=== PATIENT | female | born 1950 | race Caucasian/White ===

== ENCOUNTER → 2017-01-09 | Outpatient (CLI) | payer MEDICARE, MEDICAID ==
[~2017-01-09] MED LIST: ACET325T51 PO; ALBU18HF2 ORAL INH; AMLO10TA2 PO; ASPI81TA2 PO; ATEN50TA PO; GUAI-782 PO; IPRA12.9 INH; LEVO100T12 PO; LISI1TAB9 PO; LORA1TAB3 PO; POTA-81 PO
== END ==
LOC: IMA 15:11
PROVIDERS: ATTEND Registered Nurse
DX: R92.8 Other abnormal and inconclusive findings on diagnostic imaging of breast (principal)

== ENCOUNTER 2017-01-27 06:03 | Day surgery (SDC) | payer MEDICARE, MEDICAID ==
--- NOTE | 2017-01-03 09:46 | NUR ---
NN PT REPORTS THAT SHE STILL ISN'T FEELING WELL FROM HER RECENT BRONCHITIS AND WISHES TO RESCHEDULE PROCEDURE FOR A LATER DAY. PT. TRANSFERRED TO DR. CHIN OFFICE.
[~2017-01-27] VITALS: Ht 167.6 cm; Wt 106.5 kg
[~2017-01-27 06:03] MED LIST changes: +DIPH25CA84 PO; +LORA10TA62 PO; +PRAV40TA3 PO
[2017-01-27 06:07] VITALS: Ht 167.6 cm; Wt 106.5 kg
--- OUTSIDE RECORDS SUMMARY | 2017-01-27 06:07 | XMS REPORT | Continuity of Care Document ---
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 Role Phone RICKI BRUNSON DO Primary Care Physician [phone] Insurance Providers Payer Name Policy Number Subscriber Name Relationship s Medicare [id number] Georgina Galloway Self / Same As Patient [facility] [id number] Georgina Galloway 01 Self / Same As Patient Problems Medical Problems Problem Onset Date Status Acute pharyngitis Unknown Active Acute sinusitis Unknown Active Opiate withdrawal Unknown Active Hypokalemia Unknown Active Adhesive capsulitis of left shoulder Unknown Active Medications Medication Dose Route Sig Days/Qty Instructions Order Date Discontinued Date Status Aspirin 81 Mg OR DAILY 07/28/08 Active Lisinopril & Hydrochlorothiazi 1 Tab PO 11/28/13 Active Pravastatin Sod 40 Mg PO 11/28/13 Active Amlodipine Besylate 10 Mg PO DAILY 01/22/14 Active Potassium Chloride Microencaps (K-Dur) 20 Meq PO DAILY 01/22/14 Active Albuterol 1 Ea INH NEEDED 01/22/14 Active Lorazepam 0.5 Mg PO TWICE A DAY PRN P 01/22/14 Active Levothyroxine Sodium 100 Mcg PO DAILY 04/09/14 Active Sertraline Hcl 50 Mg PO DAILY 04/09/14 Active Loratadine 10 Mg PO DAILY 04/09/14 Active Atenolol 50 Mg PO DAILY For Hypertension 04/09/14 Active Acetaminophen/Hydrocodone Bitart 1 Tab PO Q 4 TO 6 HRS PRN for pain 02/1608/02/14 Discontinued Social History Social History Problem Response Recorded Date/Time Hx Alcohol Use No 08/17/2014 3:55pm Smoking Status Former smoker 08/17/2014 3:55pm Query Response Start Date Stop Date Smoking Status Former smoker Hospital Discharge Instructions No hospital discharge instructions. Plan of Care Prescriptions See Medications Section Functional Status No functional status results. Allergies, Adverse Reactions, Alerts Allergen Type Severity Reaction Status Last Updated Beta Lactamase Inhibitor Allergy Unknown Active 01/22/14 Sulfa Allergy Unknown Active 01/22/14 Immunizations No immunization records. Vital Signs Acute Vital Signs Vital Response Date/Time Blood Pressure 122/80 mm Hg Blood Pressure Mean 94 mm Hg Temperature (Fahrenheit) 98.7 degrees F (96.0 - 99.9) Temperature (Calculated Celsius) 37.09810 degrees C Temperature (Calculated Celsius) 36.78300 degrees C (36.4 - 37.5) Temperature (Fahrenheit) 98.0 degrees F (96.0 - 99.9) Temperature Source Oral Pulse Pulse Rate (adult) 61 bpm (60 - 100) Pulse Rate: ED 86 bpm Respiratory Rate 16 breaths per minute (10 - 20) Respiratory Rate 20 bpm (10 - 20) Height (Feet) 5 ft Height (Inches) 6.5 in. Weight (Pounds) 230.2 lbs Height 5 ft 6.5 in Weight 230 lb Body Mass Index 36.6 kg/m^2 Ambulatory Vital Signs Vital Response Date/Time Height 5 ft 6.540 in 08/02/2014 10:03am Weight 229 lbs 08/02/2014 10:03am Temperature 97.5 degrees F 08/02/2014 10:03am Blood Pressure 132/74 mm Hg 08/02/2014 10:03am Pulse Rate 51 bpm 08/02/2014 10:03am Body Surface Area 2.25 m2 08/02/2014 10:03am Body Mass Index 36.4 kg/m2 08/02/2014 10:03am Results Test Source Date Result Interp. Ref. Range Comments Alanine Aminotransferase (ALT/SGPT) April 09, 2014 8:40pm 24 U/L N 5-40 Albumin April 09, 2014 8:40pm 4.1 gm/dL N 3.2-5.0 Albumin/Globulin Ratio April 09, 2014 8:40pm 1.6 N 1.4-2.4 Alkaline Phosphatase April 09, 2014 8:40pm 79 U/L N 35-125 Anion Gap April 09, 2014 8:40pm 12.9 N 6-13 Aspartate Amino Transf (AST/SGOT) April 09, 2014 8:40pm 23 U/L N 5-40 BUN/Creatinine Ratio April 09, 2014 8:40pm 26.3 Basophils # (Auto) April 09, 2014 8:40pm 0.1 K/uL N 0-0.2 Basophils (%) (Auto) April 09, 2014 8:40pm 0.7 % N 0-1 Blood Urea Nitrogen April 09, 2014 8:40pm 20 mg/dL N 8-25 Calcium Level April 09, 2014 8:40pm 9.5 mg/dL N 8.2-10.6 Carbon Dioxide Level April 09, 2014 8:40pm 26 mEq/L N 22-34 Chloride Level April 09, 2014 8:40pm 101 mEq/L N 98-116 Creatine Kinase MB July 28, 2008 9:50pm 1.8 ng/mL N 0.0-6.0 COMMENTS ROOM 2 Creatine Kinase MB Relative Index July 28, 2008 9:50pm Not Performed 0.0-2.2 Creatinine April 09, 2014 8:40pm 0.76 mg/dL L 0.9-1.6 Direct Bilirubin May 04, 2009 12:09pm 0.1 mg/dL N 0-0.4 Eosinophils # (Auto) April 09, 2014 8:40pm 0.3 K/uL N 0-0.8 Eosinophils (%) (Auto) April 09, 2014 8:40pm 3.3 % N 0-7.0 Erythrocyte Sedimentation Rate May 04, 2009 12:09pm 27 mm/hr N 0-30 Globulin April 09, 2014 8:40pm 2.6 gm/dL N 2.0-3.0 Hematocrit April 09, 2014 8:40pm 38.3 % N 38.0-47.0 Hemoglobin April 09, 2014 8:40pm 13.2 g/dL N 12.0-16.0 Immature Blood Cells May 04, 2009 12:09pm 0.1 X10.e3/U N 0-0.4 Indirect Bilirubin May 04, 2009 12:09pm 0.7 mg/dL N 0.1-0.8 Lymphocytes # (Auto) April 09, 2014 8:40pm 1.2 K/uL N 0.9-5.2 Lymphocytes (%) (Auto) April 09, 2014 8:40pm 15.6 % L 16.0-44.0 Mean Corpuscular Hemoglobin April 09, 2014 8:40pm 28.0 pg N 26.0-33.0 Mean Corpuscular Hemoglobin Concent April 09, 2014 8:40pm 34.5 g/dL N 31.0-36.0 Mean Corpuscular Volume April 09, 2014 8:40pm 81.3 fL L 82.0-100.0 Mean Platelet Volume April 09, 2014 8:40pm 10.0 fL N 7.0-11.0 Monocytes # (Auto) April 09, 2014 8:40pm 0.8 K/uL N 0.16-1.0 Monocytes (%) (Auto) April 09, 2014 8:40pm 10.7 % H 2.0-9.0 Neutrophils # (Auto) April 09, 2014 8:40pm 5.3 K/uL N 1.9-8.0 Neutrophils (%) (Auto) April 09, 2014 8:40pm 69.4 % N 42.0-75.0 Nucleated Red Blood Cells # April 09, 2014 8:40pm 0.00 K/uL N 0.0-0.012 Nucleated Red Blood Cells % April 09, 2014 8:40pm 0.0 /100WBC N 0-0 Platelet Count April 09, 2014 8:40pm 212 K/uL N 130-400 Potassium Level April 09, 2014 8:40pm 2.9 mEq/L PL 3.5-5.1 CRITICAL RESULT VERIFIED AND CALLED TO JUDE/SEVERINO AT 21:07 BYTT. RDW Standard Deviation April 09, 2014 8:40pm 38.4 fL N 36.4-46.3 Random Glucose April 09, 2014 8:40pm 108 mg/dL N 65-115 Red Blood Count April 09, 2014 8:40pm 4.71 M/uL N 4.20-5.40 Red Cell Distribution Width April 09, 2014 8:40pm 13.0 % N 11.5-14.5 Sodium Level April 09, 2014 8:40pm 137 mEq/L N 133-145 Thyroid Stimulating Hormone (TSH) April 09, 2014 8:40pm 0.98 uIU/ml N 0.34-5.60 Total Bilirubin April 09, 2014 8:40pm 0.6 mg/dL N 0.1-1.3 Total Creatine Kinase July 28, 2008 9:50pm 116 U/L N 10-180 COMMENTS ROOM 2 Total Protein April 09, 2014 8:40pm 6.7 gm/dL N 6.0-8.4 Troponin I July 28, 2008 9:50pm 0.01 ng/mL N 0.0-0.03 <0.03 ng /mL=NORMAL0.04 - 0.50 ng/mL=CARDIAC CONDITION >0.50 ng/mL=SUGGESTS AMI White Blood Count April 09, 2014 8:40pm 7.6 K/uL N 5.0-10.0 D-Dimer Quantitative (PE/DVT) July 28, 2008 9:50pm 1.76 mg/L N 0.40- 3.00 If the result is greater than 1.5 mg/L then the potentialfor PE / DVT exists. Follow up testing is indicated if suspected clinically. Results will be elevated greater than 3.0 mg/L in DIC. Glomerular Filtration Rate Calc April 09, 2014 8:40pm > 60.00 mL/min MULTIPLY RESULT BY 1.210 IF THE PATIENT IS -AMERICANUnits are mL/min/ 1.73 m2 > 60 Normal kidney function 30-59 Moderately decreased kidney function 15-29 Severely decreased kidney function <15 End-stage kidney failure Immature Granulocyte # (Auto) April 09, 2014 8:40pm 0.02 K/uL N 0-0.40 Immature Granulocyte % (Auto) April 09, 2014 8:40pm 0.3 % N 0-0.5 Streptococcus Rapid Screen Throat November 28, 2013 3:48pm Procedures No known history of procedures. Encounters Encounter Location Date/Time Registered Clinic [facility] 08/17/14 3:34pm Office Visit [facility] 08/02/14 10:00am Registered Clinic [facility] 08/02/14 10:00am Departed Emergency Room [facility] 04/09/14 6:55pm Discharged Recurring [facility] 03/03/14 8:12am Departed Emergency Room [facility] 01/22/14 9:07am Registered Clinic [facility] 11/28/13 3:23pm
--- OUTSIDE RECORDS SUMMARY | 2017-01-27 06:07 | XMS REPORT | Continuity of Care Document ---
Author Author [facility] Organization [facility] Address Unknown Phone Unavailable Support Name Relationship Address Phone KOBY HOLBROOK DO Caregiver [address] [place] [address] Unavailable DRAKE BRAGA APRN Caregiver [address] [place] [address] Unavailable PAZ LOMBARDI Next Of Kin [address] [place] [address] Insurance Providers Guarantor Georgina Galloway Address [address] [place] [address] Email DENIED/NO TO PT PORT 16 Payer Medicaid Policy Number [id number] Subscriber's Name Georgina Galloway Relationship 18 Self Effective Date 16 Expiration Date 16 Payer Medicare Policy Number [id number] Subscriber's Name Georgina Galloway Relationship 18 Self Chief Complaint and Reason for Visit Chief Complaint Accidental Overdose Reason for Visit Accidental drug ingestion Problems Active Problems Medical Problem Onset Date Status Right calf pain Unknown Past Problems Medical Problem Onset Date Accidental drug ingestion Unknown Medications Current Home Medications Medication Dose Units Route Directions Days Qty Instructions Start Date Acetaminophen 325 Mg Tablet 650 Mg Oral Every 6 Hours as needed for Pain 11/17/16 Albuterol Sulfate (Ventolin Hfa 90 Mcg/Actuation) 18 Gm Hfa.aer.ad 1 Puff Oral Inhalation Every 4 Hours as needed for Shortness Of Air/Wheezing 11/17/16 Amlodipine Besylate 10 Mg Tablet 10 Mg Oral Daily 11/17/16 Aspirin 81 Mg Tab.chew 81 Mg Oral Daily 06/22/16 Atenolol 50 Mg Tablet 50 Mg Oral Daily 06/22/16 Guaifenesin/Dextromethorphan (Mucinex Dm Er 600-30 Mg Tablet) 1 Each Tab.er.12h 1 Tab Oral Every 12 Hrs Prn 11/17/16 Ipratropium [place] (Atrovent Hfa) 200 Puff/12.9 G Inhaler 2 Puff Inhalation Four Times Daily as needed for Shortness Of Air/Wheezing 11/17/16 Levothyroxine Sodium 100 Mcg Tablet 100 Mcg Oral Before Breakfast 11/17/16 Lisinopril/Hydrochlorothiazide (Lisinopril-Hctz 10-12.5 Mg Tab) 1 Each Tablet 1 Tab Oral Daily 06/22/16 Lorazepam 1 Mg Tablet 1 Mg Oral As Needed as needed for Anxiety 06/22/16 Potassium Chloride 20 Meq Tablet.er 20 Meq Oral Daily 06/22/16 Social History Social History Problem Response Recorded Date/Time Onset Date Status Hx Alcohol Use No 11/17/2016 10:55am Not Applicable Not Applicable Query Response Start Date Stop Date Smoking Status Unknown if ever smoked Hospital Discharge Instructions No hospital discharge instructions. Plan of Care Discharge Date 11/17/16 2:13pm Disposition 01 DISCHARGED HOME, SELF-CARE Condition at Discharge Improved Prescriptions See Medication Section Referrals DRAKE BRAGA APRN Order Date: 2 Days Address: [address] [place] [address] [phone] Note: Care Plan and Goals Physician Care Plan Problem: Accidental Overdose of Prescription Drug Goal: Follow up with primary care provider Instructions: Take medications and follow care plan as discussed/written Functional Status No functional status results. Allergies, Adverse Reactions, Alerts Allergen Type Severity Reaction Status Last Updated Sulfa (Sulfonamide Antibiotics) Allergy Unknown Active 06/22/16 Loracarbef Allergy Unknown Active 06/22/16 Immunizations No immunization records. Vital Signs Acute Vital Signs Vital Response Date/Time Temperature (Fahrenheit) 97.8 deg F (96.8 - 99.1) 11/17/2016 2:13pm Temperature (Calculated Celsius) 36.31994 degrees C (36.0 - 37.3) 11/17/2016 2:13pm Pulse Rate (adult) 82 bpm (60 - 100) 11/17/2016 2:13pm Respiratory Rate 16 breaths/min (10 - 20) 11/17/2016 2:13pm O2 Sat by Pulse Oximetry 98 % (90 - 100) 11/17/2016 2:13pm Blood Pressure 131/85 mm Hg 11/17/2016 2:13pm Height (Feet) 5 feet 11/17/2016 10:44am Height (Inches) 6.50 inches 11/17/2016 10:44am Weight (Kilograms) 111.300 kg 11/17/2016 10:44am Body Mass Index (BMI) 39.0 11/17/2016 10:44am Results Laboratory Results Test Name Result Units Flags Reference Collection Date/Time Result Date/ Time Comments White Blood Count 5.0 T/MM3 4.5-11.0 11/17/2016 11:00am 11/17/2016 11: 05am Red Blood Count 5.01 M/MM3 4.00-5.20 11/17/2016 11:00am 11/17/2016 11: 05am Hemoglobin 14.3 GM/DL 12-16 11/17/2016 11:00am 11/17/2016 11:05am Hematocrit 42.5 % 36-46 11/17/2016 11:00am 11/17/2016 11:05am Mean Corpuscular Volume 84.8 UM3 80-100 11/17/2016 11:00am 11/17/2016 11:05am Mean Corpuscular Hemoglobin 28.5 UUG 26-34 11/17/2016 11:00am 2016 11:05am Mean Corpuscular Hemoglobin Concent 33.6 GM/DL 31-37 11/17/2016 11:00am 11/17/2016 11:05am RDW Standard Deviation 39.7 FL 36.9-50.2 11/17/2016 11:00am 11/17/2016 11:05am Platelet Count 244 T/MM3 130-400 11/17/2016 11:00am 11/17/2016 11:05am Mean Platelet Volume 9.6 UM3 9.4-12.4 11/17/2016 11:00am 11/17/2016 11: 05am Neutrophils (%) (Auto) 65.7 % 33-66 11/17/2016 11:00am 11/17/2016 11: 05am Lymphocytes (%) (Auto) 21.9 % L 23-45 11/17/2016 11:00am 11/17/2016 11: 05am Monocytes (%) (Auto) 9.2 % H 0-9.0 11/17/2016 11:00am 11/17/2016 11: 05am Eosinophils (%) (Auto) 2.6 % 0-4 11/17/2016 11:00am 11/17/2016 11:05am Basophils (%) (Auto) 0.6 % 0-2 11/17/2016 11:00am 11/17/2016 11:05am Immature Granulocyte % (Auto) 0.0 % 0.0-0.5 11/17/2016 11:00am 2016 11:05am Absolute Neutrophils (auto) 3.3 T/MM3 1.8-7.7 11/17/2016 11:00am 2016 11:05am Absolute Lymphocytes (auto) 1.1 T/MM3 1-4.8 11/17/2016 11:00am 2016 11:05am Absolute Monocytes (auto) 0.5 T/MM3 0-0.8 11/17/2016 11:00am 2016 11:05am Absolute Eosinophils (auto) 0.1 T/MM3 0-0.5 11/17/2016 11:00am 2016 11:05am Absolute Basophils (auto) 0.0 T/MM3 0-0.2 11/17/2016 11:00am 2016 11:05am Absolute Immature Granulocyte (auto 0.00 T/MM3 0.00-0.03 11/17/2016 11: 00am 11/17/2016 11:05am Prothromb Time International Ratio 1.05 H 0.76-1.04 11/17/2016 11:00am 11/17/2016 11:08am THERAPUTIC RANGE=2.00-3.00 FOR ANTI-THROMBOSIS THERAPUTIC RANGE=2.50-3.50 FOR IMPLANTED VALVE Icterus Index < 2 0-7 11/17/2016 11:00am 11/17/2016 11:26am Chemistry Specimen Hemolysis < 15 0-25 11/17/2016 11:00am 11/17/2016 11:26am 0-25: Specimen Exhibited No Hemolysis. Turbidity < 20 0-20 11/17/2016 11:00am 11/17/2016 11:26am Sodium Level 139 MEQ/L 134-144 11/17/2016 11:00am 11/17/2016 11:14am Potassium Level 3.5 MEQ/L L 3.6-5 11/17/2016 11:00am 11/17/2016 11:14am Chloride Level 104 MEQ/L 98-107 11/17/2016 11:00am 11/17/2016 11:14am Carbon Dioxide Level 23 MEQ/L 22-30 11/17/2016 11:00am 11/17/2016 11: 14am Anion Gap 12 MEQ/L 5-15 11/17/2016 11:00am 11/17/2016 11:14am Blood Urea Nitrogen 15.0 MG/DL 7-17 11/17/2016 11:00am 11/17/2016 11: 14am Creatinine 0.9 MG/DL 0.7-1.2 11/17/2016 11:00am 11/17/2016 11:14am BUN/Creatinine Ratio 17 RATIO 6-26 11/17/2016 11:00am 11/17/2016 11: 14am Glomerular Filtration Rate Calc 62 11/17/2016 11:00am 11/17/2016 11 :14am Glucose Level 128 MG/DL H 65-110 11/17/2016 11:00am 11/17/2016 11:14am Calculated Osmolality 271 MOSM/KG 261-280 11/17/2016 11:00am 2016 11:14am Calcium Level 10.3 MG/DL H 8.4-10.2 11/17/2016 11:00am 11/17/2016 11: 14am Troponin I < 0.012 ng/ml 0-0.12 11/17/2016 11:00am 11/17/2016 11:26am Troponin values with a difference of 55% increase from orginal troponin value represent a true biological DELTA value. (%increase Calc=Orginal Troponin value, divided by subsequent Troponin value, multiplied by 100) OP-Dep-X-Type Natriuretic Peptide 70 PG/ML 0-175 11/17/2016 11:00am 09/2017 11:22am Rule in cut points: <50 years old=450; 50-75 years old=900; >75 years old=1800; When utilizing ProBNP rule-in cut points, adjustment for impaired renal function is typically not required. Acetaminophen Level < 10 UG/ML L 08-0411/17/2016 11:00am 11/17/2016 11: 39am TOXIC <4 HR POST INGESTION: >150 MG/L; TOXIC <12 HR POST INGESTION: >50 MG/L Salicylates Level < 1.0 MG/DL L 2-20 11/17/2016 11:00am 11/17/2016 11: 39am Alcohol, Quantitative <10 MG/DL <10 11/17/2016 11:00am 11/17/2016 11: 39am Urine Collection Type CLEANCATCH-MIDSTREAM 11/17/2016 12:39pm 11/17 12:55pm Urine Color YELLOW YELLOW 11/17/2016 12:39pm 11/17/2016 12:55pm Urine Turbidity CLEAR CLEAR 11/17/2016 12:39pm 11/17/2016 12:55pm Urine Specific [place] 1.025 1.015-1.025 11/17/2016 12:39pm 2016 12:55pm Urine pH 5.0 5.0-8.0 11/17/2016 12:39pm 11/17/2016 12:55pm Urine Leukocyte Esterase NEGATIVE NEGATIVE 11/17/2016 12:39pm 2016 12:55pm Urine Nitrite NEGATIVE NEGATIVE 11/17/2016 12:39pm 11/17/2016 12: 55pm Urine Protein NEGATIVE NEGATIVE 11/17/2016 12:39pm 11/17/2016 12: 55pm Urine Glucose (UA) NEGATIVE NEGATIVE 11/17/2016 12:39pm 11/17/2016 12 :55pm Urine Ketones NEGATIVE NEGATIVE 11/17/2016 12:39pm 11/17/2016 12: 55pm Urine Urobilinogen 0.2 EU/DL NORMAL 11/17/2016 12:39pm 11/17/2016 12: 55pm Urine Bilirubin NEGATIVE NEGATIVE 11/17/2016 12:39pm 11/17/2016 12: 55pm Urine Blood NEGATIVE NEGATIVE 11/17/2016 12:39pm 11/17/2016 12:55pm Urinalysis Comment MICROSCOPIC NOT IND. 11/17/2016 12:39pm 2016 12:55pm Name: GEORGINA GALLOWAY Unit #: [id number] : 1950 Sex: F Admit Date: Loc / Svc: ED Discharge Date: DIAGNOSTIC IMAGING REPORT Report #: [id number] [facility] JONATHAN Melvin Indication: ITS.REASON: SOA PROCEDURE: CHEST 1 VIEW: Encounter: Initial Comparison: None FINDINGS: The lungs are clear. There is no abnormal airspace opacity, pleural effusion or pneumothorax identified. The heart size, pulmonary vasculature and mediastinum are within normal limits. Possible hiatal hernia. No significant skeletal abnormality is seen. IMPRESSION: No acute cardiopulmonary abnormality. . Procedures No known history of procedures. Encounters Encounter Location Arrival/Admit Date Discharge/Depart Date Attending Provider Departed Emergency Room [facility] 11/17/16 10:39am 11/17/16 2: 13pm KOBY HOLBROOK DO Registered Clinic [facility] 11/14/16 2:55pm GULSHAN MELVIN Recent Diagnosis
--- OUTSIDE RECORDS SUMMARY | 2017-01-27 06:07 | XMS REPORT | Continuity of Care Document ---
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 Name Role Phone RICKI BRUNSON DO Primary Care Physician [phone] Insurance Providers Payer Name Policy Number Subscriber Name Relationship Wps Medicare [id number] Georgina Galloway Self / Same As Patient Sohan [facility] [id number] Georgina Galloway Self / Same As Patient Problems Medical Problems Problem Onset Date Status Acute pharyngitis Unknown Active Acute sinusitis Unknown Active Opiate withdrawal Unknown Active Hypokalemia Unknown Active Medications Medication Dose Route Sig [...] Lorazepam 0.5 Mg PO TWICE A DAY 01/22/14 Active Levothyroxine Sodium 100 Mcg PO DAILY 04/09/14 Active Sertraline Hcl 50 Mg PO DAILY 04/09/14 Active Loratadine 10 Mg PO DAILY 04/09/14 Active Atenolol 50 Mg PO DAILY 04/09/14 Active Linaclotide 1 Cap PO DAILY 04/09/14 Active Acetaminophen/Hydrocodone Bitart 1 Tab PO Q 4 TO 6 HRS PRN for pain 02/16 Active Hydroxyzine Hcl 25 Mg PO Every 6 hours as needed 20 Qty 04/09/14 Active Promethazine Hcl 25 Mg PO Every 8 hours as needed 15 Qty 04/09/14 Active Social History Social History Problem Response Recorded Date/Time Hx Alcohol Use No 11/28/2013 3:29pm Smoking Status Former smoker 04/09/2014 6:57pm Query Response Start Date Stop Date Smoking Status Former smoker Hospital Discharge Instructions No hospital discharge instructions. Plan of Care Discharge Date 04/09/14 9:35pm Instructions/Education Provided Hypokalemia (ED) Acute Nausea and Vomiting (ED) Prescriptions See Medications Section Functional Status Query Response Date Recorded Home/Living - Prior Functional Level Independent March 03, 2014 9:15am Allergies, Adverse Reactions, Alerts Allergen Type Severity Reaction Status Last Updated Beta Lactamase Inhibitor Allergy Unknown Active 01/22/14 Sulfa Allergy Unknown Active 01/22/14 Immunizations No immunization records. Vital Signs Acute Vital Signs Vital Response Date/Time Blood Pressure 168/90 mm Hg 04/09/2014 9:33pm Blood Pressure Mean 116 mm Hg 04/09/2014 9:33pm Pulse 04/09/2014 9:33pm Pulse Rate: ED 86 bpm 04/09/2014 9:33pm Results Test Source Date Result Interp. Ref. [...] history of procedures. Encounters Encounter Location Date/Time Discharged Recurring [facility] 04/18/14 12:07pm Departed Emergency Room [facility] 04/09/14 6:55pm Departed Emergency Room [facility] 01/22/14 9:07am Registered Clinic [facility] 11/28/13 3:23pm
--- OUTSIDE RECORDS SUMMARY | 2017-01-27 06:07 | XMS REPORT | Continuity of Care Document ---
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 [id number] Georgina Galloway 01 Self / Same As Patient Problems Medical Problems Problem Onset Date Status Acute pharyngitis Unknown Active Acute sinusitis Unknown Active Opiate withdrawal Unknown Active Hypokalemia Unknown Active Adhesive capsulitis of left shoulder Unknown Active Acute bronchitis Unknown Active Sinusitis Unknown Active Medications Medication Dose Route Sig [...] F (96.0 - 99.9) Temperature (Calculated Celsius) 37.89622 degrees C Temperature (Calculated Celsius) 36.77024 degrees C (36.4 - 37.5) Temperature (Fahrenheit) [...] procedures. Encounters Encounter Location Date/Time Registered Clinic [facility] 08/17/14 3:34pm Office Visit [facility] 08/02/14 10:00am Registered Clinic [facility] 08/02/14 10:00am Departed Emergency Room [facility] 04/09/14 6:55pm Discharged Recurring [facility] 03/03/14 8:12am Departed Emergency Room [facility] 01/22/14 9:07am Registered Clinic [facility] 11/28/13 3:23pm Recent Diagnosis Acute bronchitis Sinusitis
[2017-01-27] MEDS ORDERED: LR 1,000 ML IV SCH (07:00)
[2017-01-27] MEDS ORDERED: LIDOCAINE 1% (10mg/ml) 2ml SDV INJ ONE (07:00)
--- NOTE | 2017-01-27 07:06 | ANESPREOP ---
Anesthesia Record Date and Time DATE: 01/27/17 TIME: 07:04 Pre-Op Diagnosis Rectal bleeding Proposed Surgical Procedure COLONOSCOPY NPO since: Midnight Allergies: Coded Allergies: Sulfa (Sulfonamide Antibiotics) (Verified Allergy, Unknown, 01/27/17) loracarbef (Verified Allergy, Unknown, 01/27/17) Ht/Wt/BMI Height: 5 ' 6.00 " Weight: 106.500 kg BMI: 37.9 kg/m2 Medications Inpatient Medications Current Medications Medications (Trade) Dose Ordered Sig/Dixon Start Time Stop Time Status Last Admin Dose Admin Lactated Ringer's (Lactated Ringers) 1,000 ml @ 50 mls/hr Q20H 01/27/17 07:00 01/27/17 06:47 50 MLS/HR Acetaminophen (Acetaminophen) 325 Mg Tablet, 650 MG PO Q6H PRN for PAIN, ( Reported) Last Taken: on 01/26/17 0900 Albuterol Sulfate (Ventolin HFA 90 mcg/ actuation) 18 Gm Hfa.aer.ad, 1 PUFF ORAL INH Q4H PRN for SHORTNESS OF AIR/ WHEEZING, (Reported) Last Taken: on 01/26/17 2100 Amlodipine Besylate (Amlodipine Besylate) 10 Mg Tablet, 10 MG PO DAILY, (Reported) Last Taken: on 01/26/17 2100 Aspirin (Aspirin) 81 Mg Tab.chew, 81 MG PO DAILY, (Reported) Last Taken: on 01/26/17 0830 Atenolol (Atenolol) 50 Mg Tablet, 50 MG PO DAILY, (Reported) Last Taken: on 01/26/17 2100 Diphenhydramine HCl (Benadryl) 25 Mg Capsule, 2 CAP PO HS, (Reported) Last Taken: on 01/26/17 2100 Guaifenesin/Dextromethorphan (Mucinex Dm ER 600 -30 mg Tablet) 1 Each Tab.er.12h, 1 TAB PO [id number], (Reported) Last Taken: on Unknown Date & Time Ipratropium [place] (Atrovent Hfa) 200 Puff/12.9 G Inhaler, 2 PUFF INH QID PRN for SHORTNESS OF AIR/WHEEZING, (Reported ) Last Taken: on 01/27/17 0530 Levothyroxine Sodium (Levothyroxine Sodium) 100 Mcg Tablet, 100 MCG PO ACB, (Reported) Last Taken: on 01/26/172099 Lisinopril/Hydrochlorothiazide (Lisinopril- Hctz 10-12.5 mg Tab) 1 Each Tablet, 1 TAB PO DAILY, (Reported) Last Taken: on 01/26/17829 Loratadine (Claritin) 10 Mg Tablet, 1 TAB PO DAILY, (Reported) Last Taken: on 01/26/17829 Lorazepam (Lorazepam) 1 Mg Tablet, 1 MG PO PRN PRN for ANXIETY, (Reported) Last Taken: on 01/26/172099 Potassium Chloride (Potassium Chloride) 20 Meq Tablet.er, 20 MEQ PO DAILY, (Reported) Last Taken: on 01/26/17829 Pravastatin Sodium (Pravastatin Sodium) 40 Mg Tablet, 40 MG PO HS, (Reported) Take 1 tablet, by mouth, daily at bedtime. Last Taken: on 01/25/172099 Currently on Beta Holly: Yes Beta Holly Last Taken: labetolol at 2100 on 01/26/17 Medical/Surgical History Anesthesia PMH: Reports: *Hypertension, Arthritis (MINIMAL), Asthma, COPD, Hiatal Hernia, Hyperlipidemia, Pneumonia (HX), Reflux, Thyroid Disease (HYPO), Denies: *Diabetes, Anesthesia Reactions (NO AIRWAY ISSUES, N&V), Blood Transfusion Reac, Cancer, Clotting Problems, Glaucoma, Malignant Hyperthermia, Renal Disease, Sleep Apnea Smoking Status: Former smoker Has pt. smoked today?: No Use Chewing Tobacco?: No Second Hand Exposure: No Substance Use Type: does not use HX of Last Menstrual Period: HYST. Past Surgical History Orthopedic Surgeries: Abdominal Surgeries: Genitourinary Surgeries: Cardiac Surgeries: Endocrine Surgeries: Reproductive Surgeries: - HYST Neurological Surgeries: Ear Surgeries: Nose Surgeries: Throat Surgeries: Yes - TONSILLECTOMY Other Surgeries: - HYST Anesthesia Adverse Reactions: FOUND none Family Hx of Anesthesia Advers: none Hx of Motion Sickness: No Pertinent Findings EKG Rhythm: Sinus Rhythm Physical Exam Respiratory: Lungs clear Cardiovascular: FOUND Regular rate, rhythm Airway Assessment Mallampati Score: II TMD: 3 Fingerbreadths Neck Extension: Fair Overall Assessment: No Airway Concerns ASA: 3 Plan Anesthesia Plan: TIVA Discussion Discussed risks/options/alternatives of anesthesia and questions answered. Patient consents. Nursing pain assessment noted. Present: Family Member Attestation Statement Prior to the delivery of any anesthetic medication, I examined the patient, developed the plan, obtained the patient's consent and discussed the risk and benefits of the procedure with the patient/guardian. RAAD GRABER PROCESS COACH Jan 27, 2017 07:06
[2017-01-27 08:23] VITALS: BP 109/69; PULSE 56; RESP 16; TEMP 97.6; O2SAT 98
[2017-01-27] MEDS ORDERED: PROPOFOL 500mg 100 ML IV ONE (08:24)
--- NOTE | 2017-01-27 08:31 | GSPOSTPROC ---
Immediate Operative Note DATE: 01/27/17 TIME: 08:30 Postop Diagnosis: * Multiple <0.5 cm sessile polyps of the rectum * 0.5 cm sessile polyp of the ascending colon * Mild pandiverticulosis Surgical Procedure: C-scope w/Polypectomy Surgeon: Feliberto ASA: 3 MILE CHIN MD Jan 27, 2017 08:31
[2017-01-27 08:38] VITALS: BP 104/59; PULSE 56; RESP 16; O2SAT 94
[2017-01-27 08:53] VITALS: BP 105/55; PULSE 51; RESP 16; O2SAT 96
--- NOTE | 2017-01-27 08:58 | ANESPO ---
Post-Op Note Date 01/27/17 Time: 08:58 Status Pt Participated in Evaluation: Pt participated in person Vital Signs Date Time Temp Pulse Resp B/P Pulse Ox O2 Delivery O2 Flow Rate FiO2 01/27/17 08:23 97.6 56 16 109/69 98 Mask 4.00 Respiratory Function: Airway patent, Regular respirations Cardiovascular Function: Regular pulse Telemetry Pattern: SR Mental Status: Alert/oriented Pain Level Intensity: 0 Hydration: Taking po fluids Complications during Recovery None apparent Follow-Up Instructions Instructions Per Surgeon SORAIDA SHEPHERD CRNA Jan 27, 2017 08:58
--- NOTE | 2017-01-27 14:05 | OPNOTEF ---
DATE OF OPERATION 01/27/2017 SURGEON Bridger Dao MD PREOPERATIVE DIAGNOSIS Hemoccult positive stools. POSTOPERATIVE DIAGNOSES 1. Multiple less than 0.5 cm sessile polyps of the rectum (five removed). 2. 0.5 cm sessile polyp of the ascending colon. 3. Mild reilly diverticulosis. PROCEDURE Colonoscopy with hot biopsy forceps polypectomy x6. ANESTHESIA TIVA ASA CLASS 3 INDICATIONS The patient is a 66-year-old female who had had Hemoccult testing performed for colon cancer screening and did have a positive test. Colonoscopy was recommended to her. FINDINGS Endoscopy revealed multiple small polyps in the rectum which grossly appeared consistent with hyperplastic polyps. There was another small polyp in the area of the ascending colon opposite the ileocecal valve. The patient had mild reilly diverticulosis with a few diverticula throughout the colon but they were most concentrated in the sigmoid colon. DESCRIPTION OF PROCEDURE After informed consent was obtained, the patient was taken to the endoscopy suite and placed in the left lateral decubitus position. IV anesthesia was administered by the anesthesia team. The patient had received a MiraLAX/Dulcolax bowel prep the day prior. A digital rectal exam was performed and was normal. An Olympus videocolonoscope with an AmplifEYE device in place was inserted and retroflexed to examine the distal rectum. No significant internal hemorrhoid tissue was noted. Scope was returned to a neutral position. There were multiple polyps in the area of the rectum that were grasped with hot biopsy forceps. The mucosa was tented and cautery was applied to destroy the base of the polyp. The polyp was then removed and was sent to pathology. Five of these in the rectum were removed. There were other polyps, approximately 1-2 mm in size that were left in position. The scope was then advanced to the level of the cecum with minimal difficulty. Some external abdominal wall splinting was required to fully intubate the cecum. Cecum was identified by the appendiceal orifice and ileocecal valve. The scope was slowly withdrawn examining mucosa circumferentially. There was a polyp opposite the ileocecal valve that was also removed with hot biopsy forceps polypectomy. Other than the diverticulosis, no other abnormality was noted. Upon reaching the rectum, the carbon dioxide insufflation was evacuated and the scope was removed. RECOMMENDATIONS 1. Await pathology to determine the necessary time interval for repeat colonoscopy. 2. High-fiber diet due to diverticulosis. MTDD
== END 2017-01-27 09:10 | disposition home or self-care (01) ==
LOC: NSC 06:03
PROVIDERS: ATTEND Surgery
DX: K63.5 Polyp of colon (principal); K62.1 Rectal polyp; R19.5 Other fecal abnormalities; K57.30 Diverticulosis of large intestine without perforation or abscess without bleeding; I10 Essential (primary) hypertension; E78.00 Pure hypercholesterolemia, unspecified; E03.9 Hypothyroidism, unspecified; K21.9 Gastro-esophageal reflux disease without esophagitis; F41.9 Anxiety disorder, unspecified; J45.909 Unspecified asthma, uncomplicated; J43.9 Emphysema, unspecified; Z87.01 Personal history of pneumonia (recurrent); Z79.82 Long term (current) use of aspirin; Z79.899 Other long term (current) drug therapy; Z87.891 Personal history of nicotine dependence
CPT/HCPCS: 45384; J7120; 88305

== ENCOUNTER 2017-02-23 17:27 | Inpatient (IN) | payer MEDICARE, MEDICAID ==
[~2017-02-23] VITALS: Ht 167.6 cm; Wt 107.1 kg
[2017-02-23] VITALS (20 sets, daily range): BP systolic 116–158; BP diastolic 58–101; PULSE 55–131; RESP 16–36; TEMP 97.8; O2SAT 94–99; Ht 167.6 cm; Wt 107.1 kg
--- OUTSIDE RECORDS SUMMARY | 2017-02-23 17:31 | XMS REPORT | Continuity of Care Document ---
Author Author [facility] Organization [facility] Address Unknown Phone Unavailable Care Team Providers Care Technical Support Director Name Role Phone RICKI BRUNSON DO Primary Care Physician [phone] Insurance Providers Payer Name Policy Number Subscriber Name Relationship s Medicare [id number] Georgina Galloway Self / Same As Patient Sohan [facility] [id number] Georgina Galloway 01 Self / Same As [...] F (96.0 - 99.9) Temperature (Calculated Celsius) 37.69103 degrees C Temperature (Calculated Celsius) 36.10916 degrees C (36.4 - 37.5) Temperature (Fahrenheit) [...] procedures. Encounters Encounter Location Date/Time Registered Clinic [facility] 08/17/14 3:34pm Office Visit IRA LOAIZA 08/02/14 10:00am Registered Clinic [facility] 08/02/14 10:00am Departed Emergency Room [facility] 04/09/14 6:55pm Discharged Recurring [facility] 03/03/14 8:12am Departed Emergency Room [facility] 01/22/14 9:07am Registered Clinic [facility] 11/28/13 3:23pm Recent Diagnosis Acute bronchitis Sinusitis
--- OUTSIDE RECORDS SUMMARY | 2017-02-23 17:31 | XMS REPORT | Continuity of Care Document ---
Author Author [facility] Organization [facility] Address Unknown Phone Unavailable Care Team Providers Care Bread Room Hand Name Role Phone RICKI BRUNSON DO Primary Care Physician [phone] Insurance Providers Payer Name Policy Number Subscriber Name Relationship s Medicare [id number] Georgina Galloway Self / Same As Patient Sohan [facility] [id number] Georgina Galloway 01 Self / Same As [...] F (96.0 - 99.9) Temperature (Calculated Celsius) 37.34195 degrees C Temperature (Calculated Celsius) 36.13622 degrees C (36.4 - 37.5) Temperature (Fahrenheit) [...] procedures. Encounters Encounter Location Date/Time Registered Clinic [facility] 08/17/14 3:34pm Office Visit IRA LOAIZA 08/02/14 10:00am Registered Clinic [facility] 08/02/14 10:00am Departed Emergency Room [facility] 04/09/14 6:55pm Discharged Recurring [facility] 03/03/14 8:12am Departed Emergency Room [facility] 01/22/14 9:07am Registered Clinic [facility] 11/28/13 3:23pm
--- OUTSIDE RECORDS SUMMARY | 2017-02-23 17:31 | XMS REPORT | Continuity of Care Document ---
Author Author [facility] Organization [facility] Address Unknown Phone Unavailable Support Name Relationship Address Phone MILE DAO MD Caregiver [address] [place] [address] [place] [address] Unavailable DRAKE BRAGA APRN Caregiver [address] [place] [address] Unavailable DILAN GALLOWAY Next Of Kin [address] [place] [id number] Insurance Providers Guarantor Georgina Galloway Address [address] [place] [address] Email DENIED 17 Payer Medicaid Policy Number [id number] Subscriber's Name Georgina Galloway Relationship 18 Self Effective Date 17 Expiration Date 17 Payer Medicare Policy Number [id number] Subscriber's Name Georgina Galloway Relationship 18 Self Advance Directives Directive Response Recorded Date/Time Ordered Resuscitation Status Full Code 01/24/17 3:40pm Resuscitation Documents on File No 01/27/17 6:07am DPOA for Healthcare Only No 01/27/17 6:07am Living Will No 01/27/17 6:07am Problems Active Problems Medical Problem Onset Date [...] Mg Tablet 50 Mg Oral Daily 06/22/16 Diphenhydramine Hcl (Benadryl) 25 Mg Capsule 2 Cap Oral Bedtime 60 Capsule 01/24/17 Guaifenesin/Dextromethorphan (Mucinex Dm Er 600-30 Mg Tablet) 1 Each Tab.er.12h 1 Tab Oral Every 12 Hrs Prn 11/17/16 Ipratropium [place] (Atrovent Hfa) 200 Puff/12.9 G Inhaler 2 Puff Inhalation Four Times Daily as needed for Shortness Of Air/Wheezing 11/17/16 Levothyroxine Sodium 100 Mcg Tablet 100 Mcg Oral Before Breakfast 11/17/16 Lisinopril/Hydrochlorothiazide (Lisinopril-Hctz 10-12.5 Mg Tab) 1 Each Tablet 1 Tab Oral Daily 06/22/16 Loratadine (Claritin) 10 Mg Tablet 1 Tab Oral Daily 01/24/17 Lorazepam 1 Mg Tablet 1 Mg Oral As Needed as needed for Anxiety 06/22/16 Potassium Chloride 20 Meq Tablet.er 20 Meq Oral Daily 06/22/16 Pravastatin Sodium 40 Mg Tablet 40 Mg Oral Bedtime Take 1 tablet, by mouth, daily at bedtime. 01/24/17 Social History Social History Problem Response Recorded Date/Time Onset Date Status Reason for Hospitalization Colonoscopy 01/27/2017 8:38am Not Applicable Not Applicable Chewing Tobacco Status No 01/24/2017 10:16am Not Applicable Not Applicable Hx Substance Use No 01/24/2017 10:16am Not Applicable Not Applicable Hx Alcohol Use No 11/17/2016 10:55am Not Applicable Not Applicable Has the pt used tobacco in the last 12 months No 01/24/2017 10:16am Not Applicable Not Applicable Query Response Start Date Stop Date Smoking Status Former smoker Hospital Discharge Instructions Instructions: Care Instructions: I was in the hospital because (patient own words): colonoscopy Discharge Diet: You may resume your usual diet. Discharge Activity: You may resume your usual activity. Follow Up Appointments: No specific follow-up appointment with Dr. Dao is necessary. You can call his office for any questions or concerns ([phone]). Dr. Dao's office will notify you of your results in about 2 weeks. Pending Lab / Results: Will be notified Patient Instructions: Do not drive, operate machinery, drink alcohol, or sign important papers for 24 hours. Expected Signs/Symptoms: You may have some gas discomfort. Notify Physician If: Contact Dr. Dao if you have a fever over 101 degrees, severe abdominal pain, or severe rectal bleeding. During Business Hours:: *In the event of an emergency, call 911 or seek medical care at the nearest emergency room.* During office hours, call Dr. Dao's office at [phone]. After Business Hours:: After hours, please call [facility] at [phone] and have the welding machine operator ultrasonic page Dr. Dao or the covering surgeon. Pain Management/Treatment: You should not have significant pain following the procedure. Wound/Incision Care: No wound care required. Condition at time of discharge: Good Plan of Care Discharge Date 01/27/17 9:10am Instructions/Education Provided [facility] Prescriptions See Medication Section Functional Status Query Response Date Recorded Ability to complete ADL's impeded by No change January 27, 2017 6:07am Allergies, Adverse Reactions, Alerts Allergen Type Severity Reaction Status Last Updated Sulfa (Sulfonamide Antibiotics) Allergy Unknown Active 01/27/17 Loracarbef Allergy Unknown Active 01/27/17 Immunizations Query Response on File Recorded Date/Time Hx Influenza Vaccination Y fall 201501/24/17 10:16am Hx Pneumococcal Vaccination Y fall 201501/24/17 10:16am Hx Influenza Vaccination Y fall 201501/24/17 10:16am Vital Signs Acute Vital Signs Vital Response Date/Time Temperature (Fahrenheit) 97.6 deg F (96.8 - 99.1) 01/27/2017 8:23am Temperature (Calculated Celsius) 36.73125 degrees C (36.0 - 37.3) 01/27/2017 8:23am Temperature Source Temporal 01/27/2017 8:23am Pulse Rate (adult) 51 bpm (60 - 100) 01/27/2017 8:53am Respiratory Rate 16 breaths/min (10 - 20) 01/27/2017 8:53am O2 Sat by Pulse Oximetry 96 % (90 - 100) 01/27/2017 8:53am Oxygen Delivery Method Room Air 01/27/2017 8:53am Oxygen Flow Rate 4.00 L/min 01/27/2017 8:23am Blood Pressure 105/55 mm Hg 01/27/2017 8:53am Blood Pressure Source Automatic Cuff 01/27/2017 8:53am Height (Feet) 5 feet 01/27/2017 6:07am Height (Inches) 6.00 inches 01/27/2017 6:07am Weight (Kilograms) 106.500 kg 01/27/2017 6:07am Body Mass Index (BMI) 37.9 01/27/2017 6:07am Results Laboratory Results Test Name Result Units [...] by subsequent Troponin value, multiplied by 100) NB-Hvi-N-Type Natriuretic Peptide 70 PG/ML 0-175 11/17/2016 11:00am 09/2017 11:22am Rule in cut points: <50 years old=450; 50-75 years old=900; >75 years old=1800; When utilizing ProBNP rule-in cut points, adjustment for impaired renal function is typically not required. Acetaminophen Level < 10 UG/ML L 1011/17/2016 11:00am 11/17/2016 11: 39am TOXIC <4 HR [...] CLEAR 11/17/2016 12:39pm 11/17/2016 12:55pm Urine Specific [place] 1.025 1.015-1.025 11/17/2016 12:39pm 2016 12:55pm Urine [...] MICROSCOPIC NOT IND. 11/17/2016 12:39pm 2016 12:55pm Procedures Procedure Status Date Provider(s) Ultrasound breast limited Completed 11/14/16 [id number]"DIAGNOSTIC MAMMOGRAPHY, PRODUCING DIRECT DIGITAL IMAG Completed [id number] SHOCK WAVE THERAPY; INVOLVING ELBOW EPI Completed Chest x-ray 1 view frontal Completed 11/17/16 Metabolic panel total ca Completed 11/17/16 Urinalysis auto w/o scope Completed 11/17/16 Assay of natriuretic peptide Completed 11/17/16 Assay of troponin quant Completed 11/17/16 Complete cbc w/auto diff wbc Completed 11/17/16 Prothrombin time Completed 11/17/16 Electrocardiogram tracing Completed 11/17/16 Emergency dept visit Completed 11/17/16 [id number] ITEM OR SERVICE Completed 11/17/16 DRUG TESTS, PRESUMPTIVE, BY INSTRUMENTED CHEMISTRY ANALYZERS Completed DRUG TESTS, PRESUMPTIVE, BY INSTRUMENTED CHEMISTRY ANALYZERS Completed DRUG TESTS, PRESUMPTIVE, BY INSTRUMENTED CHEMISTRY ANALYZERS Completed Ultrasound breast limited Completed 01/09/17 Colonoscopy with polypectomy and biopsy Completed 01/27/17 MILE DAO MD Encounters Encounter Location Arrival/Admit Date Discharge/Depart Date Attending Provider Departed Surgical Day Care [facility] 01/27/17 6:03am 01/27/17 9: 10am MILE DAO MD Registered [facility] 01/09/17 3:11pm BRADFORD SCRUGGS APRN Departed Emergency Room [facility] 11/17/16 10:39am 11/17/16 2: 13pm KOBY HOLBROOK DO Registered [facility] 11/14/16 2:55pm GULSHAN IRAHETA
--- OUTSIDE RECORDS SUMMARY | 2017-02-23 17:31 | XMS REPORT | Continuity of Care Document ---
Author Author [facility] Organization [facility] Address Unknown Phone Unavailable Care Team Providers Care Senior Test Engineer Name Role Phone RICKI BRUNSON DO Primary Care Physician [phone] Insurance Providers Payer Name Policy Number Subscriber Name Relationship [employer] Medicare [id number] Georgina Galloway Self / Same As Patient Sohan [facility] [id number] Georgina Galloway Self / Same As Patient [...] procedures. Encounters Encounter Location Date/Time Discharged Recurring [facility] 04/18/14 12:07pm Departed Emergency Room [facility] 04/09/14 6:55pm Departed Emergency Room [facility] 01/22/14 9:07am Registered Clinic [facility] 11/28/13 3:23pm
[2017-02-23] MEDS ORDERED: TERB250T11 PO (17:50)
[2017-02-23] MEDS ORDERED: DIPH25CA84 PO (17:52)
[2017-02-23] MEDS ORDERED: LORA0.5T2 PO (17:54)
[2017-02-23] MEDS ORDERED: ACET-62 PO (17:55)
[2017-02-23 17:59] LABS: BASOPHILS % (AUTO) 0.4 % (0-2); EOSINOPHILS # (AUTO) 0.2 T/MM3 (0-0.5); EOSINOPHILS % (AUTO) 2.1 % (0-4); HGB - HEMOGLOBIN 14.5 GM/DL (12-16); IMMATURE GRANULOCYTE # (AUTO) 0.01 T/MM3 (0.00-0.03); IMMATURE GRANULOCYTE % (AUTO) 0.1 % (0.0-0.5); LYMPHOCYTES # (AUTO) 1.7 T/MM3 (1-4.8); LYMPHOCYTES % (AUTO) 19.2 % (23-45); MEAN CORPUSCULAR HGB 28.8 UUG (26-34); MEAN CORPUSCULAR HGB CONC(MCHC 33.7 GM/DL (31-37); MEAN CORPUSCULAR VOLUME 85.3 UM3 (80-100); MEAN PLATELET VOLUME 10.2 UM3 (9.4-12.4); MONOCYTES # (AUTO) 0.7 T/MM3 (0-0.8); MONOCYTES % (AUTO) 7.6 % (0-9.0); NEUTROPHILS #(AUTO)-ABSOLUTE 6.4 T/MM3 (1.8-7.7); NEUTROPHILS % (AUTO) 70.6 % (33-66); RED BLOOD COUNT 5.04 M/MM3 (4.00-5.20); WBC - WHITE BLOOD COUNT 9.1 T/MM3 (4.5-11.0)
[2017-02-23] MEDS ORDERED: NITROGLYCERIN 0.4 MG SUBLINGUAL TABLET SL PRN (18:00)
[2017-02-23] MEDS ORDERED: ASPIRIN 81 MG CHEWABLE TABLET PO ONE (18:00)
[2017-02-23 18:01] LABS: INR 0.96 (0.77-1.03); PROTHROMBIN TIME 10.6 SEC (9.48-12.52)
[2017-02-23 18:06] LABS: ALBUMIN 4.7 G/DL (3.5-5.0); ALBUMIN/GLOBULIN RATIO 1.7 RATIO (1.1-2.2); ALKALINE PHOSPHATASE 122 U/L (38-126); ALT (SGPT) 39 U/L (9-52); ANION GAP 14 MEQ/L (5-15); AST (SGOT) 26 U/L (14-36); BUN/CREATININE RATIO 18 RATIO (6-26); CALCIUM 10.1 MG/DL (8.4-10.2); CHLORIDE 106 MEQ/L (98-107); CO2 - CARBON DIOXIDE 24 MEQ/L (22-30); CREATININE 0.9 MG/DL (0.7-1.2); GLOMERULAR FILTRATION RATE 62; GLUCOSE 134 MG/DL (65-110); POTASSIUM 3.7 MEQ/L (3.6-5); SODIUM 144 MEQ/L (134-144); TOTAL PROTEIN 7.4 G/DL (6.3-8.2)
[2017-02-23 18:14] LABS: PROBNP 916 PG/ML (0-175)
[2017-02-23] MEDS ORDERED: ENOXAPARIN 120 MG/0.8 ML INJECTION SQ ONE (18:45)
[2017-02-23] MEDS ORDERED: DILTIAZEM 25mg/5ml INJECTION IV ONE (18:45)
[2017-02-23] MEDS ORDERED: ENOXAPARIN 100 MG/ML INJECTION SQ ONE ×2 (18:45)
--- NOTE | 2017-02-23 18:53 | ERPDOC ---
Departure Disposition Decision Date: February 23, 2017 Disposition Decision Time: 20:05 Disposition: 02 TO [facility] Impression Impression Impression: Primary Impression: Atrial fibrillation with rapid ventricular response Severity: Moderate Condition: Improved Seen By: Physician only Referrals: DRAKE BRAGA APRN (Family) Problems/Meds/Labs Reviewed?: Yes Medications reviewed and manag: Yes Follow up care ordered?: Yes Mental Status: Alert, Oriented HPI - Cardiac General Chief Complaint: Palpitations Stated Complaint: HEART PALP,NAUSEA Time Seen by Provider: 18:43 Source: patient Exam Limitations: no limitations HPI - Cardiac General Initial Comments 66yo woman presents to the ER tonight with palpitations. Pt has a h/o tachycardia and HTN, but does not have a h/o a-fib/flutter. Has felt nauseated, palpitations, stomach upset, and like she should have diarrhea (but denies diarrhea). Occurred At: home Onset/Timing: Rapid Duration: 12-24 hrs Pain/Severity Scale: Now & Worst: 4/10 Severity: mild Location: substernal Activities at Onset/Context: none Prior CP/Workup: non-cardiac Modifying Factors: IMPROVES WITH: lying down, WORSE WITH: movement Nitro Today/Relief: no nitro taken today Aspirin Today: 81 mg x 1, provided at home Associated Symptoms: diaphoresis, malaise, shortness of breath Allergies: Coded Allergies: Sulfa (Sulfonamide Antibiotics) (Verified Allergy, Unknown, 02/23/17) loracarbef (Verified Allergy, Unknown, 02/23/17) Past History Patient Medical History (1) Onychomycosis Past Medical History Pt denies signifigant PMH Metabolic: hypercholesterolemia, hypertension, hypothyroidism ENMT: allergies Cardiac: CAD Surgical History Denies Surgeries Family History Family PMH: FOUND: hypertension Vaccines Hx Influenza Vaccination: Yes (FALL 2015) Hx Pneumococcal Vaccination: Yes (FALL 2015) Social History Does patient use chewing tobac: No Second Hand Exposure: No Substance Use Type: does not use Alcohol Intake: none Review of Systems Cardiovascular Rhythm/Rate: irregular beat, palpitations, tachycardia All other Systems All Other Systems: Reviewed and Negative Physical Exam General General Nourishment: well nourished, well developed, appears stated age, no acute distress, adult, obese General Body Habitus: well groomed Vitals and Pain First Documented Vital Signs Date Time Temp Pulse Resp B/P Pulse Ox O2 Delivery O2 Flow Rate FiO2 02/23/17 17:29 98.4 133 20 161/95 96 Room Air Weight: Kilograms: 105.600 Height (feet): 5 Height (inches): 6.00 Triage Pain Scale: RN VS reviewed by Provider: Yes Normal Exams: Head: Normocephalic w/o trauma Eyes: Pupils are PERRLA w/ EOMI, No scleral icterus, irritation ENMT: No facial trauma, nasal exudates, pharyngeal erythema Neck: Full range of motion, without adenopathy, JVD Lymphatic: No lymphadenopathy Musculoskeletal: No tenderness, or deformity noted Integumentary: No rashes, hives, or bruising noted Neurologic: Patient is alert, and oriented Psychiatric: Patient exhibits, appropriate attention Respiratory (brief) Respiratory: FOUND: clear all olsen, equal bilaterally, symmetrical, NOT FOUND : rales, wheezes Cardiovascular (brief) Cardiac: NOT FOUND: click, gallop, murmur, pedal edema, peripheral edema, regular rate (tachy), regular rhythm (irregularly irregular), rub Capillary Refill: <2 sec Pulses: all distal extremities, equal, strong Abdomen (brief) Abdominal Brief: FOUND: bowel normo active x4, soft, NOT FOUND: distended, hepatosplenomegaly, pulsatile mass, tender Differential Diagnoses Considering: Acute NH, Anxiety/Panic, Angina, Atrial Fibrillation, CHF, Heart Block, Hyperventilation, Pericarditis, PSVT, Pulmonary Edema, Pulmonary Embolus Progress Results/Orders Orders Procedure Category Date Status Time Cbc W/Auto LAB 02/23/17 Complete Diff-Reflex Manual 17:49 Cmp - Comprehensive LAB 02/23/17 Complete Metabolic 17:49 Probnp LAB 02/23/17 Complete 17:49 Troponin I W LAB 02/23/17 Complete Hemolysis Index 17:49 INR LAB 02/23/17 Complete 17:49 EKG EKG 02/23/17 Taken 17:49 Chest 1 View RAD 02/23/17 Taken 17:49 Iv Lock (Ed Only) EDM 02/23/17 Transmitted 17:49 Aspirin (Asa) PHA 02/23/17 Complete 18:00 Nitroglycerin PHA 02/23/17 In Process (Nitrostat) 18:00 Diltiazem (Cardizem*) PHA 02/23/17 Complete Iv Bolus (Cardizem 18:45 Enoxaparin (Lovenox) PHA 02/23/17 Complete 18:45 Enoxaparin (Lovenox) PHA 02/23/17 Complete 18:45 Enoxaparin (Lovenox) PHA 02/23/17 Complete 18:45 Ua, Dip Wreflex LAB 02/23/17 Complete Microsc & Boot Maker 18:43 D-Dimer LAB 02/23/17 Complete 18:44 EKG EKG 02/23/17 Taken Lab Results Laboratory Tests Test 02/23/17 17:25 02/23/17 17:52 02/23/17 18:54 D-Dimer < 150NG/ML White Blood Count 9.1T/MM3 Red Blood Count 5.04M/MM3 Hemoglobin 14.5GM/DL Hematocrit 43.0% Mean Corpuscular Volume 85.3UM3 Mean Corpuscular Hemoglobin 28.8UUG Mean Corpuscular Hemoglobin Concent 33.7GM/DL RDW Standard Deviation 40.4FL Platelet Count 251T/MM3 Mean Platelet Volume 10.2UM3 Immature Granulocyte % (Auto) 0.1% Neutrophils (%) (Auto) 70.6% Lymphocytes (%) (Auto) 19.2% Monocytes (%) (Auto) 7.6% Eosinophils (%) (Auto) 2.1% Basophils (%) (Auto) 0.4% Absolute Immature Granulocyte (auto 0.01T/MM3 Absolute Neutrophils (auto) 6.4T/MM3 Absolute Lymphocytes (auto) 1.7T/MM3 Absolute Monocytes (auto) 0.7T/MM3 Absolute Eosinophils (auto) 0.2T/MM3 Absolute Basophils (auto) 0.0T/MM3 Prothromb Time International Ratio 0.96 Turbidity < 20 Sodium Level 144MEQ/L Potassium Level 3.7MEQ/L Chloride Level 106MEQ/L Carbon Dioxide Level 24MEQ/L Anion Gap 14MEQ/L Blood Urea Nitrogen 16.0MG/DL Creatinine 0.9MG/DL Glomerular Filtration Rate Calc 62 BUN/Creatinine Ratio 18RATIO Glucose Level 134MG/DL Calculated Osmolality 280MOSM/KG Calcium Level 10.1MG/DL Total Bilirubin 0.50MG/DL Icterus Index < 2 Aspartate Amino Transf (AST/SGOT) 26U/L Alanine Aminotransferase (ALT/SGPT) 39U/L Alkaline Phosphatase 122U/L Troponin I < 0.012ng/ml SE-Qki-P-Type Natriuretic Peptide 916PG/ML Total Protein 7.4G/DL Albumin 4.7G/DL Globulin 2.7G/DL Albumin/Globulin Ratio 1.7RATIO Chemistry Specimen Hemolysis < 15 Urine Collection Type Cleancatch-midstream Urine Color Yellow Urine Turbidity Clear Urine pH 5.0 Urine Specific Mccomb 1.015 Urine Protein Negative Urine Glucose (UA) Negative Urine Ketones Negative Urine Blood Negative Urine Nitrite Negative Urine Bilirubin Negative Urine Urobilinogen 0.2EU/DL Urine Leukocyte Esterase Negative Urinalysis Comment Microscopic not ind. Medications Current ED Medications Aspirin (ASA) 324 mg O ONCE PO ; Start 02/23/17 at 18:00; Stop 02/23/17 at 18: 01; Status DC Nitroglycerin (Nitrostat) 0.4 mg Q5MIN PRN SL CHEST PAIN; Start 02/23/17 at 18: 00 Diltiazem HCl (Cardizem) 20 mg O ONCE IV Last administered on 02/23/17 18:46 ; Start 02/23/17 at 18:45; Stop 02/23/17 at 18:46; Status DC Enoxaparin Sodium (Lovenox) 106 mg O ONCE SQ ; Start 02/23/17 at 18:45; Stop at 18:45; Status DC Enoxaparin Sodium (Lovenox) 100 mg O ONCE SQ ; Start 02/23/17 at 18:45; Stop at 18:46; Status DC Enoxaparin Sodium (Lovenox) 100 mg O ONCE SQ Last administered on 02/23/17 18 :47; Start 02/23/17 at 18:45; Stop 02/23/17 at 18:46; Status DC Progress Progress Pt with a-fib with RVR on monitor (100-120s) and a-fib confirmed with 12-lead. Rate controlled with 20mg dilt x1 (70s). No anti-coag; so treatment dose lovenox given. Will complete workup then contact cards for inpt vs outpt referral/version. EKG EKG #1: Rate: 60-100 Rhythm: atrial fibrillation Zebulon: normal QRS: normal Intervals: normal ST/T: normal Interpreted by: signing physician EKG #2: Rate: 60-100 Rhythm: atrial fibrillation Zebulon: normal QRS: normal Intervals: normal ST/T: normal Interpreted by: signing physician Consult/PCP Consult/PCP #1: Physician Contacted: Cardiology (Dr. Pillai) Time Called: 19:29 Time of first response: 19:33 Type of discussion: Phone Consult/PCP Discussion Details Recommends cardizem drip at 5mg, then titrate to effect. Admit and will re-eval in AM. Consult/PCP #2: Physician Contacted: [facility] Time Called: 19:38 Time of first response: 19:40 Type of discussion: Admit Discussion/PCP Discussion Details Will admit pt Xray Xray : Xray: CXR Portable Interpretation: Abnormal (? widened mediastinum), Interpreted by Me JORGE LUIS HANEY DO February 23, 2017 18:53
--- OUTSIDE RECORDS SUMMARY | 2017-02-23 18:54 | XMS REPORT | Continuity of Care Document ---
Author Author [facility] Organization [facility] Address Unknown Phone Unavailable Care Team Providers Care Medication Specialist Name Role Phone RICKI BRUNSON DO Primary Care Physician [phone] Insurance Providers Payer Name Policy Number Subscriber Name Relationship s Medicare [id number] Georgina Galloway Self / Same As Patient Sohan [facility] [id number] Georgina Galloway 01 Self / Same As [...] F (96.0 - 99.9) Temperature (Calculated Celsius) 37.81059 degrees C Temperature (Calculated Celsius) 36.92594 degrees C (36.4 - 37.5) Temperature (Fahrenheit) [...] procedures. Encounters Encounter Location Date/Time Registered Clinic [facility] 08/17/14 3:34pm Office Visit [facility] 08/02/14 10:00am Registered Clinic [facility] 08/02/14 10:00am Departed Emergency Room [facility] 04/09/14 6:55pm Discharged Recurring [facility] 03/03/14 8:12am Departed Emergency Room [facility] 01/22/14 9:07am Registered Clinic [facility] 11/28/13 3:23pm Recent Diagnosis Acute bronchitis Sinusitis
--- OUTSIDE RECORDS SUMMARY | 2017-02-23 18:54 | XMS REPORT | Continuity of Care Document ---
Author Author [facility] Organization [facility] Address Unknown Phone Unavailable Care Team Providers Care Doll Wigs Hackler Name Role Phone RICKI BRUNSON DO Primary Care Physician [phone] Insurance Providers Payer Name Policy Number Subscriber Name Relationship s Medicare [id number] Georgina Galloway Self / Same As Patient Sohan [facility] [id number] Georgina Galloway 01 Self / Same As [...] F (96.0 - 99.9) Temperature (Calculated Celsius) 37.55037 degrees C Temperature (Calculated Celsius) 36.31592 degrees C (36.4 - 37.5) Temperature (Fahrenheit) [...] procedures. Encounters Encounter Location Date/Time Registered Clinic [facility] 08/17/14 3:34pm Office Visit [facility] 08/02/14 10:00am Registered Clinic [facility] 08/02/14 10:00am Departed Emergency Room [facility] 04/09/14 6:55pm Discharged Recurring [facility] 03/03/14 8:12am Departed Emergency Room [facility] 01/22/14 9:07am Registered Clinic [facility] 11/28/13 3:23pm
--- OUTSIDE RECORDS SUMMARY | 2017-02-23 18:55 | XMS REPORT | Continuity of Care Document ---
Author Author [facility] Organization [facility] Address Unknown Phone Unavailable Care Team Providers Care Chain Saw Mechanic Name Role Phone RICKI BRUNSON DO Primary Care Physician [phone] Insurance Providers Payer Name Policy Number Subscriber Name Relationship [employer] Medicare [id number] Georgina Galloway Self / Same As Patient Sohan [facility] [id number] Georgina Galloway Self / Same As Patient [...] procedures. Encounters Encounter Location Date/Time Discharged Recurring [facility] 04/18/14 12:07pm Departed Emergency Room [facility] 04/09/14 6:55pm Departed Emergency Room [facility] 01/22/14 9:07am Registered Clinic [facility] 11/28/13 3:23pm
[2017-02-23 19:17] LABS: BLOOD, URINE NEGATIVE (NEGATIVE); COLOR,URINE YELLOW (YELLOW); LEUKOCYTE ESTERASE ,URINE NEGATIVE (NEGATIVE); NITRITE,URINE NEGATIVE (NEGATIVE); UROBILINOGEN,URINE 0.2 EU/DL (NORMAL)
[2017-02-23] MEDS ORDERED: PRN ORDERS MC (19:45)
[2017-02-23] MEDS ORDERED: LR 1,000 ML IV SCH (19:46)
--- OUTSIDE RECORDS SUMMARY | 2017-02-23 19:54 | XMS REPORT | Continuity of Care Document ---
Author Author [facility] Organization [facility] Address Unknown Phone Unavailable Care Team Providers Care Manager Clinic Name Role Phone RICKI BRUNSON DO Primary Care Physician [phone] Insurance Providers Payer Name Policy Number Subscriber Name Relationship s Medicare [id number] Georgina Galloway Self / Same As Patient Sohan [facility] [id number] Georgina Galloway 01 Self / Same As [...] F (96.0 - 99.9) Temperature (Calculated Celsius) 37.50610 degrees C Temperature (Calculated Celsius) 36.77627 degrees C (36.4 - 37.5) Temperature (Fahrenheit) [...] procedures. Encounters Encounter Location Date/Time Registered Clinic [facility] 08/17/14 3:34pm Office Visit [facility] 08/02/14 10:00am Registered Clinic [facility] 08/02/14 10:00am Departed Emergency Room [facility] 04/09/14 6:55pm Discharged Recurring [facility] 03/03/14 8:12am Departed Emergency Room [facility] 01/22/14 9:07am Registered Clinic [facility] 11/28/13 3:23pm Recent Diagnosis Acute bronchitis Sinusitis
--- OUTSIDE RECORDS SUMMARY | 2017-02-23 19:54 | XMS REPORT | Continuity of Care Document ---
Author Author [facility] Organization [facility] Address Unknown Phone Unavailable Care Team Providers Care Gas Check Pad Maker Name Role Phone RICKI BRUNSON DO Primary Care Physician [phone] Insurance Providers Payer Name Policy Number Subscriber Name Relationship s Medicare [id number] Georgina Galloway Self / Same As Patient Sohan [facility] [id number] Georgina Galloway 01 Self / Same As [...] F (96.0 - 99.9) Temperature (Calculated Celsius) 37.07335 degrees C Temperature (Calculated Celsius) 36.38330 degrees C (36.4 - 37.5) Temperature (Fahrenheit) [...] procedures. Encounters Encounter Location Date/Time Registered Clinic [facility] 08/17/14 3:34pm Office Visit [facility] 08/02/14 10:00am Registered Clinic [facility] 08/02/14 10:00am Departed Emergency Room [facility] 04/09/14 6:55pm Discharged Recurring [facility] 03/03/14 8:12am Departed Emergency Room [facility] 01/22/14 9:07am Registered Clinic [facility] 11/28/13 3:23pm
--- OUTSIDE RECORDS SUMMARY | 2017-02-23 19:54 | XMS REPORT | Continuity of Care Document ---
Author Author [facility] Organization [facility] Address Unknown Phone Unavailable Care Team Providers Care Trailhead Maintenance Worker Name Role Phone RICKI BRUNSON DO Primary Care Physician [phone] Insurance Providers Payer Name Policy Number Subscriber Name Relationship [employer] [id number] Georgina Galloway Self / Same As Patient Sohan [facility] [id number] Georgina Galloway Self / Same As Patient [...] procedures. Encounters Encounter Location Date/Time Discharged Recurring [facility] 04/18/14 12:07pm Departed Emergency Room [facility] 04/09/14 6:55pm Departed Emergency Room [facility] 01/22/14 9:07am Registered Clinic [facility] 11/28/13 3:23pm
[2017-02-23] MEDS ORDERED: ONDANSETRON 4mg/2ml INJECTION IV PRN (20:00)
[2017-02-23] MEDS ORDERED: DILTIAZEM 125 MG in NORMAL SALINE 125 ML IV SCH (20:00)
[2017-02-23] MEDS: DILTIAZEM 125 MG in NORMAL SALINE 125 ML IV SCH (20:00)
--- NOTE | 2017-02-23 20:05 | NUR ---
Admission Patient arrives from ED via bed and transfers self from bed to bed. Report given prior to arrival. Patient is AOx3, denies pain and SOA. Does complain of nausea.
--- NOTE | 2017-02-23 20:35 | NUR ---
Sinus Rhythm Patient converted around 2029 from Afib to Sinus Rhythm. HR is currently in the 70s when at rest. Cardizem drip is 5 mg/hr
[2017-02-23] MEDS ORDERED: BISACODYL 5 MG E.C. TABLET PO PRN (20:45)
[2017-02-23] MEDS ORDERED: MILK OF MAGNESIA 30 ML SUSP PO PRN (20:45)
--- NOTE | 2017-02-23 20:50 | HPPDOC ---
JUDE MORELAND MD 02/23/17 2044: HPI - Adult Date DATE: 02/23/17 TIME: 20:40 General Chief Complaint: weakness and palpitations History of Present Illness Please note that the patient was seen via telemedicine with nursing assistance on 02/23/2017 Ms. Galloway is a 66yo woman with h/o HTN, dyslipidemia, hypothyroidism, Class 2 obesity BMI 37, hyst and colon polyps but no CAD or CVAs. She presents after feeling more fatigued yesterday, then with palpitations and nausea today. No chest pain or pressure, no fevers, chills, cough, or other pain noted. Only recent med change start of terbenifine for toenail fungus. Past Medical History Past Medical History Patient's Medical History: (1) Atrial fibrillation with rapid ventricular response (2) HTN (hypertension) (3) Dyslipidemia (4) Obesity (5) Hypothyroidism Surgical History Patient's Surgical History: hysterectomy Current Medications Home Meds Reported Medications Albuterol Sulfate (Ventolin HFA 90 mcg/actuation) 18 Gm Hfa.aer.ad, 1 PUFF ORAL INH Q4H Y for SHORTNESS OF AIR/WHEEZING, INHALER 02/24/17 Acetaminophen (Acetaminophen) 500 Mg Tablet, 2 TAB PO Q8H Y for PAIN 02/23/17 Lorazepam (Lorazepam) 0.5 Mg Tablet, 1-2 TAB PO PRN 02/23/17 Diphenhydramine HCl (Benadryl) 25 Mg Capsule, 2 CAP PO HS 02/23/17 Terbinafine HCl (Terbinafine HCl) 250 Mg Tablet, 250 MG PO DAILY 02/23/17 Loratadine (Claritin) 10 Mg Tablet, 10 MG PO DAILY 01/24/17 Pravastatin Sodium (Pravastatin Sodium) 40 Mg Tablet, 40 MG PO HS 01/24/17 Amlodipine Besylate (Amlodipine Besylate) 10 Mg Tablet, 10 MG PO HS 11/17/16 Levothyroxine Sodium (Levothyroxine Sodium) 100 Mcg Tablet, 100 MCG PO ACB 11/17/16 Aspirin (Aspirin) 81 Mg Tab.chew, 81 MG PO DAILY 06/22/16 Atenolol (Atenolol) 50 Mg Tablet, 50 MG PO HS 06/22/16 Lisinopril/Hydrochlorothiazide (Lisinopril-Hctz 10-12.5 mg Tab) 1 Each Tablet, 1 TAB PO DAILY, TAB 06/22/16 Potassium Chloride (Potassium Chloride) 20 Meq Tablet.er, 20 MEQ PO DAILY 06/22/16 Allergies: Coded Allergies: Sulfa (Sulfonamide Antibiotics) (Verified Allergy, Unknown, 02/23/17) loracarbef (Verified Allergy, Unknown, 02/23/17) Family History Family History: father with h/o rheumatic fever of CAD at 57, mother of CVAs in her 80s Social History Smoking Status: Never smoker Does patient use chewing tobac: No Second Hand Exposure: No Substance Use Type: does not use Alcohol Intake: none Marital Status: Single Housing: house Current Occupational Status: retired Review of Systems Unable to Obtain Comments 10+ systems negative aside from those positive in HPI Physical Exam General General Nourishment: well nourished, obese Vital Signs Vital Signs Date Time Temp Pulse Resp B/P Pulse Ox O2 Delivery O2 Flow Rate FiO2 02/23/17 19:07 78 18 96 Room Air 02/23/17 19:00 140/74 02/23/17 17:29 98.4 Height (Feet): 5 Height (Inches): 6.00 Eyes Brief: FOUND: EOMI Respiratory Brief: FOUND: clear all olsen, equal bilaterally, symmetrical, NOT FOUND: wheezes Cardiovascular (brief) Cardiac Brief: NOT FOUND: murmur, pedal edema Comments afib in ED rate 132 with cardizembolus then gtt leading to now SR with rate 68 Abdomen (brief) Abdominal Brief: FOUND: BS normo active x4, soft Integumentary (brief) Integumentary Brief: FOUND: pink, warm Neurologic (brief) Neurological Brief: FOUND: cranial 2-12 intact Neurologic RN Documented GCS Eye Opening: Verbal: Motor: Total: Psychiatric (brief) FOUND: alert, normal affect, oriented Laboratory Laboratory Tests Test 02/23/17 17:25 02/23/17 17:52 02/23/17 18:54 D-Dimer < 150NG/ML White Blood Count 9.1T/MM3 Red Blood Count 5.04M/MM3 Hemoglobin 14.5GM/DL Hematocrit 43.0% Mean Corpuscular Volume 85.3UM3 Mean Corpuscular Hemoglobin 28.8UUG Mean Corpuscular Hemoglobin Concent 33.7GM/DL RDW Standard Deviation 40.4FL Platelet Count 251T/MM3 Mean Platelet Volume 10.2UM3 Immature Granulocyte % (Auto) 0.1% Neutrophils (%) (Auto) 70.6% Lymphocytes (%) (Auto) 19.2% Monocytes (%) (Auto) 7.6% Eosinophils (%) (Auto) 2.1% Basophils (%) (Auto) 0.4% Absolute Immature Granulocyte (auto 0.01T/MM3 Absolute Neutrophils (auto) 6.4T/MM3 Absolute Lymphocytes (auto) 1.7T/MM3 Absolute Monocytes (auto) 0.7T/MM3 Absolute Eosinophils (auto) 0.2T/MM3 Absolute Basophils (auto) 0.0T/MM3 Prothromb Time International Ratio 0.96 Turbidity < 20 Sodium Level 144MEQ/L Potassium Level 3.7MEQ/L Chloride Level 106MEQ/L Carbon Dioxide Level 24MEQ/L Anion Gap 14MEQ/L Blood Urea Nitrogen 16.0MG/DL Creatinine 0.9MG/DL Glomerular Filtration Rate Calc 62 BUN/Creatinine Ratio 18RATIO Glucose Level 134MG/DL Calculated Osmolality 280MOSM/KG Calcium Level 10.1MG/DL Total Bilirubin 0.50MG/DL Icterus Index < 2 Aspartate Amino Transf (AST/SGOT) 26U/L Alanine Aminotransferase (ALT/SGPT) 39U/L Alkaline Phosphatase 122U/L Troponin I < 0.012ng/ml LE-Qrx-P-Type Natriuretic Peptide 916PG/ML Total Protein 7.4G/DL Albumin 4.7G/DL Globulin 2.7G/DL Albumin/Globulin Ratio 1.7RATIO Chemistry Specimen Hemolysis < 15 Urine Collection Type Cleancatch-midstream Urine Color Yellow Urine Turbidity Clear Urine pH 5.0 Urine Specific [employer] 1.015 Urine Protein Negative Urine Glucose (UA) Negative Urine Ketones Negative Urine Blood Negative Urine Nitrite Negative Urine Bilirubin Negative Urine Urobilinogen 0.2EU/DL Urine Leukocyte Esterase Negative Urinalysis Comment Microscopic not ind. Assessment & Plan Problems: (1) Atrial fibrillation with rapid ventricular response Status: Acute Assessment & Plan: BP stable and no CHF. Cardizem gtt with lovenox 1mg/kg and AM echo with cardiology to see. One soda per day with no other caffeine. Check TSH with no recent levothyroxine dose change. (2) HTN (hypertension) Status: Chronic Qualifiers: Hypertension type: essential hypertension Qualified Codes: I10 - Essential (primary) hypertension (3) Dyslipidemia Status: Chronic Assessment & Plan: statin (4) Hypothyroidism Status: Chronic Qualifiers: Hypothyroidism type: acquired Qualified Codes: E03.9 - Hypothyroidism, unspecified (5) Obesity Status: Chronic Qualifiers: Obesity type: due to excess calories Assessment & Plan: check A1C with hyperglycemia as well DVT Prophylaxis: SCD'S, Lovenox Code Status Full Code Hospital Course Summary Disclaimer The hospital course summary below is not to be considered part of the above Progress Note. IZABELLA CHAN MD 02/24/17 1133: Past Medical History Current Medications Home Meds Reported Medications Albuterol Sulfate (Ventolin HFA 90 mcg/actuation) 18 Gm Hfa.aer.ad, 1 PUFF ORAL INH Q4H Y for SHORTNESS OF AIR/WHEEZING, INHALER 02/24/17 Acetaminophen (Acetaminophen) 500 Mg Tablet, 2 TAB PO Q8H Y for PAIN 02/23/17 Lorazepam (Lorazepam) 0.5 Mg Tablet, 1-2 TAB PO PRN 02/23/17 Diphenhydramine HCl (Benadryl) 25 Mg Capsule, 2 CAP PO HS 02/23/17 Terbinafine HCl (Terbinafine HCl) 250 Mg Tablet, 250 MG PO DAILY 02/23/17 Loratadine (Claritin) 10 Mg Tablet, 10 MG PO DAILY 01/24/17 Pravastatin Sodium (Pravastatin Sodium) 40 Mg Tablet, 40 MG PO HS 01/24/17 Amlodipine Besylate (Amlodipine Besylate) 10 Mg Tablet, 10 MG PO HS 11/17/16 Levothyroxine Sodium (Levothyroxine Sodium) 100 Mcg Tablet, 100 MCG PO ACB 11/17/16 Aspirin (Aspirin) 81 Mg Tab.chew, 81 MG PO DAILY 06/22/16 Atenolol (Atenolol) 50 Mg Tablet, 50 MG PO HS 06/22/16 Lisinopril/Hydrochlorothiazide (Lisinopril-Hctz 10-12.5 mg Tab) 1 Each Tablet, 1 TAB PO DAILY, TAB 06/22/16 Potassium Chloride (Potassium Chloride) 20 Meq Tablet.er, 20 MEQ PO DAILY 06/22/16 Allergies: Coded Allergies: Sulfa (Sulfonamide Antibiotics) (Verified Allergy, Unknown, 02/23/17) loracarbef (Verified Allergy, Unknown, 02/23/17) Assessment & Plan Problems: (1) Atrial fibrillation with rapid ventricular response Status: Acute Assessment & Plan: BP stable and no CHF. Cardizem gtt with lovenox 1mg/kg and AM echo with cardiology to see. One soda per day with no other caffeine. Check TSH with no recent levothyroxine dose change. (2) Hyperglycemia Status: Resolved Assessment & Plan: Suspect stress reaction. (3) HTN (hypertension) Status: Chronic Qualifiers: Hypertension type: essential hypertension Qualified Codes: I10 - Essential (primary) hypertension (4) Dyslipidemia Status: Chronic Assessment & Plan: statin (5) Hypothyroidism Status: Chronic Qualifiers: Hypothyroidism type: acquired Qualified Codes: E03.9 - Hypothyroidism, unspecified (6) COPD with asthma Status: Chronic (7) Obesity Status: Chronic Qualifiers: Obesity type: due to excess calories Assessment & Plan: check A1C with hyperglycemia as well Plan/Intensity of Service Have independently interviewed and examined pt. Chart reviewed. Reviewed above note and concur. CC: Palpitations. HPI: 66 y/o WF with Hx of HTN/Tachycardia (no prior Hx afib/aflutter) presents to [facility] [place] with palpitations. Reports minor palpitations off and on for about 2 days prior to presentation but very minimal symptoms and short lived. Is on Atenolol for HTN/Tachycardia and adherent with her medication - reports HR typically in the 50-60 with Atenolol. Friday (02/23) morning, palpitations more intense and longer lived. With palpitations, did note she feels more dizzy/ unsteady with positional changes. Denies chest pressure or pain. Not feeling increased SOA. More fatigue and nausea. No emesis. Denies increased pedal edema. No claudication. No recent trauma or injury. Does try to exercise routinely by walking; notes with get winded/fatigued if walks up 6 flights of stairs - but exertional symptoms stable. Noted some chills, but no fever. PMHx: HTN, HDL, Hypothyroidism, GERD, COPD/emphysema/Asthma, OA, Anxiety, HX depression, Allergies, Hx Vags Hyst, Hx tonsillectomy, Hx Colonoscopy- hyperplastic polyps. Allergies: Sulfa, Loracarbef Meds: Atenolol, Norvasc, lisinopril HCT, Synthroid, ASA, Claritin, Pravastatin, Benadry, KCL, lorazepam prn, Tylenol prn, albuterol prn. Terbinafine recently started. SHx: , lives independently. No pets. No smoke (smoked very minimally in her 30's). FHx: M in her 80s of CVA-had HTN, HLD, DM, dementia and breast Ca. F at 57 of CAD. 2 aunts with breast CA ROS: As above. Gen: Typical state of health with exception of bronchitis about 1 month ago (resolved). HEENT: Vision/hearing stable. No increased sinus pressure or pain. Lungs: not having increased cough or congestion. Needed Albuterol x1 prior to arrival. No pain with breathing. CV: as above. GI: slight nausea without emesis. No ab pain. Stools slow. : No urinary pain/burning/ blood. MS: denies increased arthritic pain or joint swelling. Neuro: denies localizing weakness or numbness. Speech stable. Psych: mood stable. Skin: no rashes or lesions. 10 point ROS discussed with patient-negative except for positives as noted above. Exam: Gen: [id number] A&O HEENT: NC/AT PERRLA EMOI MMM No thrush Neck: Midline, supple, no tracheal deviation Lungs: clear bilaterally. No crackles, wheezes, distress on RA. CV: Bradycardic, regular AB; Soft NT/ND +BS EXT: +1 edema. SCD present of B LE Neuro: CN II-XII intact, no focal motor deficits Psych: Awake, alert, appropriate. Thoughts linear. Converses well. Skin: warm and dry MS: normal ROM of ext. No deformity. Lab: Reviewed Assessment: as above Plan: Inpatient admission - CCU for Cardizem drip for rate control, Cardiac consult for afib/rvr. Lovenox for anticoagulation. SCD to help decrease edema. Continue home meds with exception of Lamisil. Monitor lab and tele. JUDE MORELAND MD February 23, 2017 20:44 IZABELLA CHAN MD February 24, 2017 11:33
[2017-02-23] MEDS ORDERED: ENOXAPARIN 100 MG/ML INJECTION SQ SCH (21:00)
[2017-02-23] MEDS: PRAVASTATIN 40 MG TABLET PO SCH (21:59)
[2017-02-23] MEDS ORDERED: ATENOLOL 50 MG TABLET PO SCH (22:00)
--- NOTE | 2017-02-23 22:45 | NUR ---
Cardizem Drip Decreased Cardizem Drip from 5 mls/hr to 3 mls/hr do to heart rate dropping below 60 bpm
[2017-02-23] MEDS: LORAZEPAM 2 MG/ML INJECTION IV PRN (23:52)
[2017-02-24] VITALS (37 sets, daily range): BP systolic 92–121; BP diastolic 50–67; PULSE 51–67; RESP 12–44; TEMP 96.8–99.7; O2SAT 89–98
--- NOTE | 2017-02-24 00:03 | NUR ---
Cardizem Drip Cardizem Drip was DC at this time do to patients HR dropping below 60. Heart rhythm continues to be sinus rhythm.
[2017-02-24] MEDS: ACETAMINOPHEN 325 MG TABLET PO PRN ×2 (04:37→22:40)
[2017-02-24 04:54] LABS: ANION GAP 10 MEQ/L (5-15); BUN/CREATININE RATIO 14 RATIO (6-26); CALCIUM 10.1 MG/DL (8.4-10.2); CHLORIDE 105 MEQ/L (98-107); CO2 - CARBON DIOXIDE 26 MEQ/L (22-30); CREATININE 0.9 MG/DL (0.7-1.2); GLOMERULAR FILTRATION RATE 62; GLUCOSE 122 MG/DL (65-110); MAGNESIUM 2.2 MG/DL (1.6-2.3); POTASSIUM 3.8 MEQ/L (3.6-5); SODIUM 141 MEQ/L (134-144)
--- NOTE | 2017-02-24 05:15 | NUR ---
Status Patient has been resting well. Ativan was given per patients request for anxiety and to help her relax. Patient does take Ativan PRN at home. No pain or SOA reported. Patient has complained of some light nausea and constipation. VSS. HR rhythm has been dysrhythmic and emma at times. Urine output has been adequate. Patient does have a cough at times and uses a Ventolin HFA inhale PRN
[2017-02-24] MEDS ORDERED: ALBU18HF2 ORAL INH (05:25)
[2017-02-24] MEDS: LEVOTHYROXINE 100 MCG TABLET PO SCH (06:06)
[2017-02-24 06:07] LABS: THYROID STIM HORMONE-TSH 0.41 MIU/L (0.47-4.68)
--- NOTE | 2017-02-24 06:13 | NUR ---
Temp Tylenol 650mg was given for a temp of 99.7 around 0430. Temp is currently 99.7. Patient states that she usually runs low and this is high for her.
[2017-02-24] MEDS ORDERED: ENOXAPARIN 100 MG/ML INJECTION SQ SCH (07:00)
--- NOTE | 2017-02-24 07:34 | DI ---
Indication: ITS.REASON: cp CHEST 1 VIEW: Comparison: 11/17/2016 Technique: Single portable upright chest Findings: Patient shows normal heart, mediastinum and central vascularity. Lungs are clear. No acute bony findings noted. Impression: Unremarkable single view chest. .
[2017-02-24] MEDS: LORATADINE 10 MG TABLET PO SCH (08:35)
[2017-02-24] MEDS: LISINOPRIL/HCTZ 10mg/12.5mg TABLET PO SCH (08:35)
[2017-02-24] MEDS: POTASSIUM CHLORIDE 20 MEQ TABLET PO SCH (08:36)
[2017-02-24] MEDS ORDERED: ASPIRIN 81 MG CHEWABLE TABLET PO SCH (09:00)
--- NOTE | 2017-02-24 09:00 | NUR ---
STATUS Patient awake and alert. Denies any discomfort. States she feels great and would like to go home. Monitor SB 50-60.
[2017-02-24] MEDS: SOTALOL 80 MG TABLET PO SCH ×2 (10:59→17:19)
--- NOTE | 2017-02-24 12:07 | CONSPD ---
Consultation Info Date DATE: 02/24/17 TIME: 11:42 Date of Consultation: February 23, 2017 Attending Physician: Daniel Ramirez MD Reason for Consultation: New onset A Fib HPI - Adult Date DATE: 02/24/17 TIME: 11:42 General Date of Admission Date of Admission: February 23, 2017 at 19:42 Chief Complaint: weakness and palpitations History of Present Illness Haseeb is a 66 year old woman with history of HTN, dyslipidemia, hypothyroidism , Class 2 obesity BMI 37, hyst and colon polyps but no CAD or CVAs. She presents after feeling more fatigued yesterday, then with palpitations and nausea today. No chest pain or pressure, no fevers, chills, cough, or other pain noted. Only recent med change start of terbenifine for toenail fungus. She was admitted to CCU, with Cardizem bolus and drip which quickly converted her to a sinus bradycardia. Dr. Pillai is consulted for management of new onset A Fib. Past Medical History Past Medical History Metabolic: hypercholesterolemia, hypertension, hypothyroidism ENMT: allergies Surgical History Cardiac: DENIES: cardiac cath, cardiac stent, pacemaker, radio ablation, valve replacement Reproductive/: hysterectomy Current Medications Home Meds Reported Medications Albuterol Sulfate (Ventolin HFA 90 mcg/actuation) 18 Gm Hfa.aer.ad, 1 PUFF ORAL INH Q4H Y for SHORTNESS OF AIR/WHEEZING, INHALER 02/24/17 Acetaminophen (Acetaminophen) 500 Mg Tablet, 2 TAB PO Q8H Y for PAIN 02/23/17 Lorazepam (Lorazepam) 0.5 Mg Tablet, 1-2 TAB PO PRN 02/23/17 Diphenhydramine HCl (Benadryl) 25 Mg Capsule, 2 CAP PO HS 02/23/17 Terbinafine HCl (Terbinafine HCl) 250 Mg Tablet, 250 MG PO DAILY 02/23/17 Loratadine (Claritin) 10 Mg Tablet, 10 MG PO DAILY 01/24/17 Pravastatin Sodium (Pravastatin Sodium) 40 Mg Tablet, 40 MG PO HS 01/24/17 Amlodipine Besylate (Amlodipine Besylate) 10 Mg Tablet, 10 MG PO HS 11/17/16 Levothyroxine Sodium (Levothyroxine Sodium) 100 Mcg Tablet, 100 MCG PO ACB 11/17/16 Aspirin (Aspirin) 81 Mg Tab.chew, 81 MG PO DAILY 06/22/16 Atenolol (Atenolol) 50 Mg Tablet, 50 MG PO HS 06/22/16 Lisinopril/Hydrochlorothiazide (Lisinopril-Hctz 10-12.5 mg Tab) 1 Each Tablet, 1 TAB PO DAILY, TAB 06/22/16 Potassium Chloride (Potassium Chloride) 20 Meq Tablet.er, 20 MEQ PO DAILY 06/22/16 Allergies: Coded Allergies: Sulfa (Sulfonamide Antibiotics) (Verified Allergy, Unknown, 02/23/17) loracarbef (Verified Allergy, Unknown, 02/23/17) Family History FOUND: CAD (father with history of Rheumatic fever), CVA (mother) Vaccines Jul 2016 Social History Smoking Status: Never smoker Does patient use chewing tobac: No Second Hand Exposure: No Substance Use Type: does not use Alcohol Intake: none Marital Status: Single Housing: house Current Occupational Status: retired Advance Directives: No DPOA for Healthcare Only Review of Systems Constitutional: REPORTS: fatigue, DENIES: chills, dizziness, fever, syncope, weakness Eyes Vision: DENIES: vision changes ENMT Hearing: DENIES: tinnitus Balance: DENIES: vertigo Mouth/Throat: DENIES: sore throat Cardiovascular DENIES: chest pain, dyspnea on exertion, murmur, orthopnea, paroxysmal nocturnal dysp Rhythm/Rate: irregular beat, palpitations Vascular: pedal edema Pulmonary Respiratory: DENIES: cough, sputum GI Upper Abdomen: nausea, DENIES: vomiting Lower Abdomen: DENIES: blood in stool, diarrhea General: DENIES: dysuria Integumentary Skin: DENIES: rash, sores Neurological General: DENIES: headache, numbness, syncope, weakness All Other Systems All Other Systems: Reviewed (remainder of 10-point ROS Neg.) Physical Exam General Vital Signs Vital Signs Date Time Temp Pulse Resp B/P Pulse Ox O2 Delivery O2 Flow Rate FiO2 02/24/17 10:59 54 02/24/17 08:00 97.3 22 101/57 95 Room Air Height (Feet): 5 Height (Inches): 6.00 Neurologic RN Documented GCS Eye Opening: Verbal: Motor: Total: Laboratory Laboratory Tests Test 02/23/17 17:25 02/23/17 17:52 02/23/17 18:54 02/23/17 21:05 D-Dimer < 150NG/ML White Blood Count 9.1T/MM3 Red Blood Count 5.04M/MM3 Hemoglobin 14.5GM/DL Hematocrit 43.0% Mean Corpuscular Volume 85.3UM3 Mean Corpuscular Hemoglobin 28.8UUG Mean Corpuscular Hemoglobin Concent 33.7GM/DL RDW Standard Deviation 40.4FL Platelet Count 251T/MM3 Mean Platelet Volume 10.2UM3 Immature Granulocyte % (Auto) 0.1% Neutrophils (%) (Auto) 70.6% Lymphocytes (%) (Auto) 19.2% Monocytes (%) (Auto) 7.6% Eosinophils (%) (Auto) 2.1% Basophils (%) (Auto) 0.4% Absolute Immature Granulocyte (auto 0.01T/MM3 Absolute Neutrophils (auto) 6.4T/MM3 Absolute Lymphocytes (auto) 1.7T/MM3 Absolute Monocytes (auto) 0.7T/MM3 Absolute Eosinophils (auto) 0.2T/MM3 Absolute Basophils (auto) 0.0T/MM3 Prothromb Time International Ratio 0.96 Turbidity < 20 Sodium Level 144MEQ/L Potassium Level 3.7MEQ/L Chloride Level 106MEQ/L Carbon Dioxide Level 24MEQ/L Anion Gap 14MEQ/L Blood Urea Nitrogen 16.0MG/DL Creatinine 0.9MG/DL Glomerular Filtration Rate Calc 62 BUN/Creatinine Ratio 18RATIO Glucose Level 134MG/DL Calculated Osmolality 280MOSM/KG Calcium Level 10.1MG/DL Total Bilirubin 0.50MG/DL Icterus Index < 2 Aspartate Amino Transf (AST/SGOT) 26U/L Alanine Aminotransferase (ALT/SGPT) 39U/L Alkaline Phosphatase 122U/L Troponin I < 0.012ng/ml MU-Atb-Y-Type Natriuretic Peptide 916PG/ML Total Protein 7.4G/DL Albumin 4.7G/DL Globulin 2.7G/DL Albumin/Globulin Ratio 1.7RATIO Chemistry Specimen Hemolysis < 15 Urine Collection Type Cleancatch-midstream Urine Color Yellow Urine Turbidity Clear Urine pH 5.0 Urine Specific [place] 1.015 Urine Protein Negative Urine Glucose (UA) Negative Urine Ketones Negative Urine Blood Negative Urine Nitrite Negative Urine Bilirubin Negative Urine Urobilinogen 0.2EU/DL Urine Leukocyte Esterase Negative Urinalysis Comment Microscopic not ind. Glucometer 119mg/dL Test 02/24/17 04:10 02/24/17 06:05 02/24/17 11:24 Turbidity < 20 Sodium Level 141MEQ/L Potassium Level 3.8MEQ/L Chloride Level 105MEQ/L Carbon Dioxide Level 26MEQ/L Anion Gap 10MEQ/L Blood Urea Nitrogen 13.0MG/DL Creatinine 0.9MG/DL Glomerular Filtration Rate Calc 62 BUN/Creatinine Ratio 14RATIO Glucose Level 122MG/DL Hemoglobin A1c 5.1% Calculated Osmolality 272MOSM/KG Calcium Level 10.1MG/DL Magnesium Level 2.2MG/DL Icterus Index < 2 Troponin I < 0.012ng/ml Thyroid Stimulating Hormone (TSH) 0.41MIU/L Chemistry Specimen Hemolysis < 15 Glucometer 104mg/dL 101mg/dL Impression/Recommendation Problems: (1) Atrial fibrillation with rapid ventricular response Status: Acute Assessment & Plan: Converted to SR post Cardizem. Change Atenolol to Sotalol for antiarrhythmic therapy. Continue to monitor telemetry overnight and repeat EKG in the morning. Start Xarelto for anticoagulation for stroke prevention. Stop aspirin and Lovenox. (2) HTN (hypertension) Status: Chronic Assessment & Plan: Continue Lisinopril/ HCTZ and monitor BP as patient reports recent weight loss of approximately 20 pounds may need adjustment (3) Dyslipidemia Status: Chronic (4) Obesity Status: Chronic Recommendation A Fib:Converted to SR post Cardizem. Change Atenolol to Sotalol for antiarrhythmic therapy. Continue to monitor telemetry overnight and repeat EKG in the morning. Start Xarelto for anticoagulation for stroke prevention. Stop aspirin and Lovenox. HTN: Continue Lisinopril/ HCTZ and monitor BP as patient reports recent weight loss of approximately 20 pounds may need adjustment. HLD: Continue Pravastatin. Thank you for allowing us to participate in the care of this patient, we will follow along with you. DARRELL CONWAY APRN February 24, 2017 11:51
--- NOTE | 2017-02-24 12:08 | NUR ---
CM CM IN TO VISIT PT. CM EXPLAINED ROLE AND PROVIDED CONTACT INFORMATION. ADVANCED DIRECTIVES INFORMATION WAS PROVIDED. PT DENIES HOME NEEDS AND IS AWARE TO CALL CM SHOULD NEEDS ARISE.
--- NOTE | 2017-02-24 13:10 | NUR ---
TRANSFER Patient transferred amb to Rm. 139. Tolerated walk w/o pain or soa.
[2017-02-24] MEDS ORDERED: RIVAROXABAN 20 MG TABLET PO SCH (17:30)
--- NOTE | 2017-02-24 17:39 | NUR ---
SHIFT SUMMARY PT ARRIVED FROM CCU AT 1310 TODAY. PT IS ON TELE AND HAS BEEN IN [place] EVER SINCE TRANSFERRED. PT DENIED ANY CHEST PAIN OR PALPITATIONS. PT IS UP AD EILEEN AND A&OX3. BETAPACE WAS ADMINISTERED SCHEDULED EVEN THOUGH HR WAS 55 SINCE IT WAS SPECIFICALLY DETERMINED TO BE GIVEN EVEN IF HR IS BELOW 60 BY IT PROGRAM MANAGER ACCORDING TO CCU EUN GOLDBERG. WILL CONTINUE TO MONITOR PTS HR AND HEART RHYTHM.
[2017-02-24] MEDS: DILTIAZEM 125 MG in NORMAL SALINE 125 ML IV SCH (20:00)
[2017-02-24] MEDS: PRAVASTATIN 40 MG TABLET PO SCH (22:24)
[2017-02-24] MEDS: LORAZEPAM 2 MG/ML INJECTION IV PRN (22:40)
--- NOTE | 2017-02-24 22:48 | NUR ---
COMFORT PT REQUESTED TYLENOL FOR 3/10 STOMACH ACHE, FEELING CONSTIPATED BUT WAITING TO BE DISMISSED TO TAKE ANY MEDS FOR CONSTIPATION. ALSO REQUESTED ATIVAN FOR SLEEP. GAVE 0.5MG IV NOW DILUTED WITH NS INTO IV PUSH.
--- NOTE | 2017-02-24 23:45 | NUR ---
REPORT REPORT RECEIVED FROM EUN HALE AT THIS TIME. PT CARE TAKEN OVER AT THIS TIME BY EUN CORONA.
[2017-02-25 00:36] VITALS: BP 122/52; PULSE 53; RESP 14; TEMP 97.6; O2SAT 92
--- NOTE | 2017-02-25 02:13 | NUR ---
Chart Check 24 hour chart check completed
[2017-02-25 04:09] VITALS: BP 114/65; PULSE 54; RESP 16; TEMP 97; O2SAT 93
--- NOTE | 2017-02-25 05:57 | NUR ---
SHIFT SUMMARY PT ALERT AND ORIENTED X 3. PT HAS SLEPT SOUNDLY THROUGHOUT THE NIGHT. PT GIVEN TYLENOL FOR STOMACH PAIN AND ATIVAN FOR SLEEP, SEE EMAR FOR TIMES. TELEMETRY REMAINS SINUS BRADYCARDIA. PT DENIES CP/N/V/SOA. PT UP AD EILEEN IN ROOM. 1999 ADA DIET. IVL IN RIGHT WRIST. BED LOCKED AND LOW, CALL LIGHT WITHIN REACH. WILL CONTINUE TO MONITOR.
[2017-02-25] MEDS: LORATADINE 10 MG TABLET PO SCH (06:39)
[2017-02-25] MEDS: LEVOTHYROXINE 100 MCG TABLET PO SCH (06:39)
[2017-02-25] MEDS: SOTALOL 80 MG TABLET PO SCH (06:40)
--- NOTE | 2017-02-25 07:07 | ECHOF ---
DATE OF PROCEDURE February 24, [address] Trever Trujillo This is a two-dimensional echo with spectral Doppler, color-flow and M-mode. It was obtained in a patient with atrial fibrillation. Left atrial dimension is mildly increased. Left ventricle end-diastolic dimension is normal. Left ventricle wall thickness is normal. LV systolic function is normal with ejection fraction of 62%. Right atrium is normal. Right ventricle is normal. Aortic root dimension is normal. Mitral annulus is mildly calcified. Mitral valve leaflets are normal with mild mitral regurgitation. Aortic valve is a trileaflet structure with mild fibrocalcific changes with no stenosis. Trace of aortic insufficiency is present. Tricuspid valve shows mild tricuspid regurgitation with normal estimated pulmonary artery systolic pressure of 31. Pulmonary valve shows no pulmonary insufficiency. There is no pericardial effusion. IMPRESSION 1. Normal LV systolic function with ejection fraction of about 62%. 2. Mitral annulus calcification with mild mitral regurgitation. 3. Aortic sclerosis with trace of aortic insufficiency. 4. Mild left atrial dilation. 5. Mild tricuspid regurgitation with normal estimated pulmonary artery systolic pressure of 31. MTDD
[2017-02-25 08:00] VITALS: BP 131/75; PULSE 58; RESP 17; TEMP 96.8; O2SAT 95
[2017-02-25] MEDS: LISINOPRIL/HCTZ 10mg/12.5mg TABLET PO SCH (08:04)
[2017-02-25] MEDS: POTASSIUM CHLORIDE 20 MEQ TABLET PO SCH (08:04)
--- NOTE | 2017-02-25 09:30 | DSPDOC ---
General Date Date DATE: 02/25/17 TIME: 09:20 Attending Physician Daniel Ramirez MD Admitting Physician Daniel Ramirez MD Consulting Physician Mendoza Pillai MD Admitting Diagnosis NEW ONSET A-FIB Discharge Diagnosis new A Fib Laboratory Laboratory Tests Test 02/23/17 17:25 02/23/17 17:52 02/23/17 18:54 02/23/17 21:05 D-Dimer < 150NG/ML White Blood Count 9.1T/MM3 Red Blood Count 5.04M/MM3 Hemoglobin 14.5GM/DL Hematocrit 43.0% Mean Corpuscular Volume 85.3UM3 Mean Corpuscular Hemoglobin 28.8UUG Mean Corpuscular Hemoglobin Concent 33.7GM/DL RDW Standard Deviation 40.4FL Platelet Count 251T/MM3 Mean Platelet Volume 10.2UM3 Immature Granulocyte % (Auto) 0.1% Neutrophils (%) (Auto) 70.6% Lymphocytes (%) (Auto) 19.2% Monocytes (%) (Auto) 7.6% Eosinophils (%) (Auto) 2.1% Basophils (%) (Auto) 0.4% Absolute Immature Granulocyte (auto 0.01T/MM3 Absolute Neutrophils (auto) 6.4T/MM3 Absolute Lymphocytes (auto) 1.7T/MM3 Absolute Monocytes (auto) 0.7T/MM3 Absolute Eosinophils (auto) 0.2T/MM3 Absolute Basophils (auto) 0.0T/MM3 Prothromb Time International Ratio 0.96 Turbidity < 20 Sodium Level 144MEQ/L Potassium Level 3.7MEQ/L Chloride Level 106MEQ/L Carbon Dioxide Level 24MEQ/L Anion Gap 14MEQ/L Blood Urea Nitrogen 16.0MG/DL Creatinine 0.9MG/DL Glomerular Filtration Rate Calc 62 BUN/Creatinine Ratio 18RATIO Glucose Level 134MG/DL Calculated Osmolality 280MOSM/KG Calcium Level 10.1MG/DL Total Bilirubin 0.50MG/DL Icterus Index < 2 Aspartate Amino Transf (AST/SGOT) 26U/L Alanine Aminotransferase (ALT/SGPT) 39U/L Alkaline Phosphatase 122U/L Troponin I < 0.012ng/ml [id number]-Rdh-I-Type Natriuretic Peptide 916PG/ML Total Protein 7.4G/DL Albumin 4.7G/DL Globulin 2.7G/DL Albumin/Globulin Ratio 1.7RATIO Chemistry Specimen Hemolysis < 15 Urine Collection Type Cleancatch-midstream Urine Color Yellow Urine Turbidity Clear Urine pH 5.0 Urine Specific [place] 1.015 Urine Protein Negative Urine Glucose (UA) Negative Urine Ketones Negative Urine Blood Negative Urine Nitrite Negative Urine Bilirubin Negative Urine Urobilinogen 0.2EU/DL Urine Leukocyte Esterase Negative Urinalysis Comment Microscopic not ind. Glucometer 119mg/dL Test 02/24/17 04:10 02/24/17 06:05 02/24/17 11:24 02/24/17 17:17 Turbidity < 20 Sodium Level 141MEQ/L Potassium Level 3.8MEQ/L Chloride Level 105MEQ/L Carbon Dioxide Level 26MEQ/L Anion Gap 10MEQ/L Blood Urea Nitrogen 13.0MG/DL Creatinine 0.9MG/DL Glomerular Filtration Rate Calc 62 BUN/Creatinine Ratio 14RATIO Glucose Level 122MG/DL Hemoglobin A1c 5.1% Calculated Osmolality 272MOSM/KG Calcium Level 10.1MG/DL Magnesium Level 2.2MG/DL Icterus Index < 2 Troponin I < 0.012ng/ml Thyroid Stimulating Hormone (TSH) 0.41MIU/L Chemistry Specimen Hemolysis < 15 Glucometer 104mg/dL 101mg/dL 90mg/dL Test 02/24/17 21:49 02/25/17 06:36 Glucometer 104mg/dL 90mg/dL Laboratory Tests Test 02/24/17 04:10 02/24/17 06:05 02/24/17 11:24 02/24/17 17:17 Turbidity < 20 (0-20) Sodium Level 141MEQ/L (134-144) Potassium Level 3.8MEQ/L (3.6-5) Chloride Level 105MEQ/L (98-107) Carbon Dioxide Level 26MEQ/L (22-30) Anion Gap 10MEQ/L (5-15) Blood Urea Nitrogen 13.0MG/DL (7-17) Creatinine 0.9MG/DL (0.7-1.2) Glomerular Filtration Rate Calc 62 BUN/Creatinine Ratio 14RATIO (6-26) Glucose Level 122MG/DL (65-110) Hemoglobin A1c 5.1% (6.1-7.9) Calculated Osmolality 272MOSM/KG (261-280) Calcium Level 10.1MG/DL (8.4-10.2) Magnesium Level 2.2MG/DL (1.6-2.3) Icterus Index < 2 (0-7) Troponin I < 0.012ng/ml (0-0.12) Thyroid Stimulating Hormone (TSH) 0.41MIU/L (0.47-4.68) Chemistry Specimen Hemolysis < 15 (0-25) Glucometer 104mg/dL (65-110) 101mg/dL (65-110) 90mg/dL (65-110) Test 02/24/17 21:49 02/25/17 06:36 Glucometer 104mg/dL (65-110) 90mg/dL (65-110) Radiology DATE OF EXAM: 02/23/17 ORDERING DOCTOR: KOBY HOLBROOK DO TYPE OF EXAM: CHEST 1 VIEW REASON FOR EXAM: cp Indication: ITS.REASON: cp CHEST 1 VIEW: Comparison: 11/17/2016 Technique: Single portable upright chest Findings: Patient shows normal heart, mediastinum and central vascularity. Lungs are clear. No acute bony findings noted. Impression: Unremarkable single view chest. DATE OF PROCEDURE February 24, [address] Trever Trujillo This is a two-dimensional echo with spectral Doppler, color-flow and M-mode. It was obtained in a patient with atrial fibrillation. Left atrial dimension is mildly increased. Left ventricle end-diastolic dimension is normal. Left ventricle wall thickness is normal. LV systolic function is normal with ejection fraction of 62%. Right atrium is normal. Right ventricle is normal. Aortic root dimension is normal. Mitral annulus is mildly calcified. Mitral valve leaflets are normal with mild mitral regurgitation. Aortic valve is a trileaflet structure with mild fibrocalcific changes with no stenosis. Trace of aortic insufficiency is present. Tricuspid valve shows mild tricuspid regurgitation with normal estimated pulmonary artery systolic pressure of 31. Pulmonary valve shows no pulmonary insufficiency. There is no pericardial effusion. IMPRESSION 1. Normal LV systolic function with ejection fraction of about 62%. 2. Mitral annulus calcification with mild mitral regurgitation. 3. Aortic sclerosis with trace of aortic insufficiency. 4. Mild left atrial dilation. 5. Mild tricuspid regurgitation with normal estimated pulmonary artery systolic pressure of 31. History of Present Illness Haseeb is a 66 year old woman with history of HTN, dyslipidemia, hypothyroidism , Class 2 obesity BMI 37, hyst and colon polyps but no CAD or CVAs. She presents after feeling more fatigued yesterday, then with palpitations and nausea today. No chest pain or pressure, no fevers, chills, cough, or other pain noted. Only recent med change start of terbenifine for toenail fungus. She was admitted to CCU, with Cardizem bolus and drip which quickly converted her to a sinus bradycardia. Dr. Pillai is consulted for management of new onset A Fib. Objective Vital Signs Vital signs Vital Signs 02/24/17 02/25/17 02/25/17 02/25/17 21:54 00:36 04:09 06:40 Temp 97.8 97.6 97.0 Pulse 56 53 54 62 Resp 16 14 16 B/P 115/65 122/52 114/65 Pulse Ox 93 92 93 O2 Delivery Room Air Room Air Room Air Telemetry Rhythm: Sinus Bradycardia Height (Feet): 5 Height (Inches): 6.00 Weight (Kilograms): 106.300 General Alert, Orientated x 3, Cooperative ENMT (Brief) mucosa moist Neck (Brief) NOT FOUND: JVD, carotid bruits Respiratory (Brief) clear all olsen, equal bilaterally, NOT FOUND: rales, wheezes Cardiovascular (Brief) pedal edema (trace), regular rhythm, NOT FOUND: murmur, regular rate ( bradycardia) Abdomen (Brief) BS normo active x4, soft, NOT FOUND: tender Integumentary (Brief) dry, pink, warm Psychiatric (Brief) alert, attentive, oriented EKG sinus bradycardia, QT/QTc 496/462 Medications Current Medications Nitroglycerin (Nitrostat) 0.4 mg Q5MIN PRN SL CHEST PAIN; Start 02/23/17 at 18: 00 Diltiazem HCl (Cardizem) 20 mg O ONCE IV Last administered on 02/23/17t 18:46 ; Start 02/23/17 at 18:45; Stop 02/23/17 at 18:46; Status DC Miscellaneous Medication (May use PRN orders) PRN PRN MC ; Start 02/23/17 at 19:45 Enoxaparin Sodium 100 mg 100 mg BID SQ ; Start 02/23/17 at 21:00; Stop 02/23/17 at 21:00; Status DC Diltiazem HCl 125 mg/Sodium Chloride 125 ml @ 5 mls/hr Q24H IV ; Start 02/23/17 at 20:00 Lactated Ringer's (Lactated Ringers) 1,000 ml @ 100 mls/hr Q10H IV ; Start at 19:46; Stop 02/23/17 at 20:28; Status DC Lorazepam (Ativan) 0.5 mg Q6H PRN IV ANXIETY Last administered on 02/24/17 22: 40; Start 02/23/17 at 20:00 Ondansetron HCl 4 mg 4 mg Q6H PRN IV NAUSEA Last administered on 02/23/17 20: 41; Start 02/23/17 at 20:00 Diltiazem HCl/ Sodium Chloride (Cardizem 125 Mg/ 25 ml Injection/ NS) 125 ml @ 0 mls/hr Q0M IV Last administered on 02/23/17 20:15; Start 02/23/17 at 20:00; Stop 02/24/17 at 06:25; Status DC Enoxaparin Sodium (Lovenox) 100 mg BID SQ Last administered on 02/24/17 08:35 ; Start 02/24/17 at 07:00; Stop 02/24/17 at 11:46; Status DC Magnesium Hydroxide (Mom) 30 ml DAILY PRN PO CONSTIPATION; Start 02/23/17 at 20 :45 Bisacodyl (Dulcolax) 5 mg BID PRN PO ; Start 02/23/17 at 20:45 Aspirin (ASA) 81 mg DAILY PO Last administered on 02/24/17 08:34; Start at 09:00; Stop 02/24/17 at 11:42; Status DC Atenolol (TENORMIN 50 mg) 50 mg HS PO Last administered on 02/23/17 21:59; Start 02/23/17 at 22:00; Stop 02/24/17 at 08:57; Status DC Levothyroxine Sodium (Synthroid) 100 mcg ACB PO Last administered on 02/25/17 06:39; Start 02/24/17 at 06:30 HCTZ/Lisinopril (Prinzide 10/ 12.5) 1 tab DAILY PO Last administered on 08:04; Start 02/24/17 at 09:00 Loratadine (Claritin) 10 mg ACB PO Last administered on 02/25/17 06:39; Start 02/24/17 at 09:00 Potassium Chloride (Kdur) 20 meq WB PO Last administered on 02/25/17 08:04; Start 02/24/17 at 08:00 Pravastatin Sodium (Pravachol) 40 mg HS PO Last administered on 02/24/17 22:24 ; Start 02/23/17 at 22:00 Acetaminophen (Tylenol Regular Strength) 1-2 TABS PO Q5H PRN PO DISCOMFORT Last administered on 02/24/17 22:40; Start 02/24/17 at 04:45 Sotalol HCl (Betapace) 40 mg ACBID PO Last administered on 02/25/17 06:40; Start 02/24/17 at 10:00 Rivaroxaban (Xarelto) 20 mg WS PO Last administered on 02/24/17 17:19; Start 02/24/17 at 17:30 Hospital Course Haseeb was started on Sotalol 40mg every morning and evening as well as Xarelto 20mg daily with supper. Aspirin and Atenolol was stopped. She remains bradycardic but is asymptomatic. She was given first 4 weeks of Xarelto samples and discount card for 1 free month of Xarelto. Problems: (1) Atrial fibrillation with rapid ventricular response Status: Acute (2) HTN (hypertension) Status: Chronic (3) Dyslipidemia Status: Chronic (4) Obesity Status: Chronic Code Status Full Code Home Meds Reported Medications Albuterol Sulfate (Ventolin HFA 90 mcg/actuation) 18 Gm Hfa.aer.ad, 1 PUFF ORAL INH Q4H Y for SHORTNESS OF AIR/WHEEZING, INHALER 02/24/17 Acetaminophen (Acetaminophen) 500 Mg Tablet, 2 TAB PO Q8H Y for PAIN 02/23/17 Lorazepam (Lorazepam) 0.5 Mg Tablet, 1-2 TAB PO PRN 02/23/17 Diphenhydramine HCl (Benadryl) 25 Mg Capsule, 2 CAP PO HS 02/23/17 Terbinafine HCl (Terbinafine HCl) 250 Mg Tablet, 250 MG PO DAILY 02/23/17 Loratadine (Claritin) 10 Mg Tablet, 10 MG PO DAILY 01/24/17 Pravastatin Sodium (Pravastatin Sodium) 40 Mg Tablet, 40 MG PO HS 01/24/17 Amlodipine Besylate (Amlodipine Besylate) 10 Mg Tablet, 10 MG PO HS 11/17/16 Levothyroxine Sodium (Levothyroxine Sodium) 100 Mcg Tablet, 100 MCG PO ACB 11/17/16 Aspirin (Aspirin) 81 Mg Tab.chew, 81 MG PO DAILY 06/22/16 Atenolol (Atenolol) 50 Mg Tablet, 50 MG PO HS 06/22/16 Lisinopril/Hydrochlorothiazide (Lisinopril-Hctz 10-12.5 mg Tab) 1 Each Tablet, 1 TAB PO DAILY, TAB 06/22/16 Potassium Chloride (Potassium Chloride) 20 Meq Tablet.er, 20 MEQ PO DAILY 06/22/16 Discharge Disposition discharged to home in the care of herself in good and stable condition with RX transmitted to [facility] for Xarelto and Sotalol. Copies To 1: DRAKE BRAGA APRN, AMY M APRN February 25, 2017 09:24
[2017-02-25] MEDS ORDERED: SOTA80TA20 PO (09:34)
[2017-02-25] MEDS ORDERED: RIVA20TA PO (09:34)
--- NOTE | 2017-02-25 10:09 | PNPDOC ---
Subjective Date DATE: 02/25/17 TIME: 10:04 Subjective F/U: Afib with RVR Doing well this morning. No new problems or concerns. No chest pressure, pain, palpitations, or heaviness. Breathing well without SOA, cough or congestion. Not feeling dizzy or unsteady with positional changed. Eating well-no nausea or ab pain. No f/c. Objective Vital Signs Vital signs Vital Signs Date Time Temp Pulse Resp B/P Pulse Ox O2 Delivery O2 Flow Rate FiO2 02/25/17 06:40 62 02/25/17 04:09 97.0 16 114/65 93 Room Air Telemetry Rhythm: Sinus Bradycardia Height (Feet): 5 Height (Inches): 6.00 Weight (Kilograms): 106.300 General General Appearance: Alert, Obese, Orientated x 3, Well Nourished, Well Developed, Cooperative, No Acute Distress, Looks Stated Age Eyes (Brief) Eyes: FOUND: EOMI, PERRL, NOT FOUND: scleral icterus ENMT (Brief) ENMT: FOUND: hearing intact, mucosa moist Neck (Brief) Neck: FOUND: midline, NOT FOUND: nuchal rigidity, spasm Respiratory (Brief) Respiratory: FOUND: clear all olsen, equal bilaterally, NOT FOUND: rales, wheezes Cardiovascular (Brief) Cardiac: FOUND: regular rate, regular rhythm Abdomen (Brief) Abdominal: FOUND: BS normo active x4, soft, NOT FOUND: distended, tender Extremities (Brief) Extremity : Side: Bilateral Extremity: leg Extremity Finding: FOUND: edema (+1 ) Musculoskeletal (Brief) Musculoskeletal: FOUND: extremities move equally, NOT FOUND: deformity, loss of motion, spasm, tenderness Integumentary (Brief) Integumentary: FOUND: dry, warm Neurologic (Brief) Neurological: FOUND: cranial 2-12 intact, motor (Intact ) Psychiatric (Brief) Psychiatric: FOUND: alert, attentive, normal affect, oriented Laboratory Laboratory Laboratory Tests 02/23/17 17:52 02/24/17 04:10 Laboratory Tests 02/23/17 17:52 Assessment & Plan Problems: (1) Atrial fibrillation with rapid ventricular response Status: Resolved Assessment & Plan: BP stable and no CHF. Cardizem gtt with lovenox 1mg/kg and AM echo with cardiology to see. One soda per day with no other caffeine. Check TSH with no recent levothyroxine dose change. (2) Hyperglycemia Status: Resolved Assessment & Plan: Suspect stress reaction. (3) HTN (hypertension) Status: Chronic Qualifiers: Hypertension type: essential hypertension Qualified Codes: I10 - Essential (primary) hypertension (4) Dyslipidemia Status: Chronic Assessment & Plan: statin (5) Hypothyroidism Status: Chronic Qualifiers: Hypothyroidism type: acquired Qualified Codes: E03.9 - Hypothyroidism, unspecified (6) COPD with asthma Status: Chronic (7) Obesity Status: Chronic Qualifiers: Obesity type: due to excess calories Assessment & Plan: check A1C with hyperglycemia as well Plan/Intensity of Service Medically doing well. Cardiology recommends discharge to home, concur. Advised pt to watch for dizziness/lightheadedness with positional changes. Will watch for palpitations/chest pain or pressure. Discussed signs and symptoms of bleeding to watch for -especially GI bleeding. See orders for details. Medically stable for discharge to home. DVT Prophylaxis: Xarelto Code Status Full Code Hospital Course Summary Disclaimer The hospital course summary below is not to be considered part of the above Progress Note. Hospital Course Summary Haseeb was started on Sotalol 40mg every morning and evening as well as Xarelto 20mg daily with supper. Aspirin and Atenolol was stopped. She remains bradycardic but is asymptomatic. She was given first 4 weeks of Xarelto samples and discount card for 1 free month of Xarelto. IZABELLA CHAN MD February 25, 2017 10:09
--- NOTE | 2017-02-25 11:02 | NUR ---
DISMISSAL PT DISMISSED HOME, PRINTED INSTRUCTIONS GIVEN AND EXPLAINED TO PT, SHE STATED UNDERSTANDING. PT'S IV WAS DC'D AND COBAND WAS LEFT IN PLACE TO HELP WITH OCCLUSION. PT A&OX3, AND WAS ACCOMPANIED TO CAR. PRESCRIPTIONS WERE CALLED TO PHARMACY BEFORE DISMISSAL.
== END 2017-02-25 12:12 | disposition home or self-care (01) | DRG 310 ==
LOC: ED 17:27 → EDHOLD 19:42 → CCU 20:05 → MED 02-24 13:10
PROVIDERS: ADMIT Pediatrics; ATTEND Hospitalist
DX: I48.91 Unspecified atrial fibrillation (principal); J44.9 Chronic obstructive pulmonary disease, unspecified; I10 Essential (primary) hypertension; E78.5 Hyperlipidemia, unspecified; E66.9 Obesity, unspecified; E03.9 Hypothyroidism, unspecified; Z68.38 Body mass index [BMI] 38.0-38.9, adult; Z79.82 Long term (current) use of aspirin
CPT/HCPCS: 36000; 36415; 80048; 80053; 81003; 82948; 83036; 83735; 83880; 84443; 84484; 85025; 85379; 85610; 93005; 93306; 96372; 96374